=== PATIENT | female | born 1970 | race Caucasian/White ===

== ENCOUNTER 2016-12-24 19:34 | Emergency (ER) | payer OTHER ==
[2016-12-24 19:44] VITALS: BP 149/66; PULSE 85; RESP 16; TEMP 97.8
[2016-12-24] MEDS ORDERED: methylPREDNISolone SOD SUCCI 125 MG/2 ML VIAL IM ONE (19:47)
[2016-12-24] MEDS ORDERED: HYDROmorphone 1 MG/ML 1 ML SYRINGE IM STA (19:47)
[2016-12-24] MEDS ORDERED: ORPHENADRINE 30 MG/ML 2 ML VIAL IM STA (19:47)
--- NOTE | 2016-12-24 19:58 | ED ---
Back Pain HPI - General Chief Complaint: Back Pain/Injury Stated Complaint: back pain Time Seen by Provider: 12/24/16 19:42 Source: patient, RN notes reviewed Limitations: no limitations - History of Present Illness Initial Comments: 46-year-old female presents to emergency room chief complaint back pain. Patient states this time she is at work she felt a pop in her back when she was stretching. Patient states that she's had this numbness and tingling radiating down her left leg. Patient does admit to some saddle anesthesia as well as one episode of loss of bladder function since his episode. Patient states there hasn't been any fever chills. Patient does admit to a history of herniated disc in the past. Patient states that she was concerned due to her continued pain and the fact he was not getting any better so she thought that she should be evaluated. Patient denies any recent fever, chills, shortness of breath, chest pain, abdominal pain, nausea vomiting, numbness or tingling, dysuria or hematuria, constipation or diarrhea, headaches or visual changes, or any other current symptoms. - Related Data Home Medications Medication Instructions Recorded Confirmed Furosemide [Lasix] 20 mg PO DAILY 12/24/16 12/24/16 Ibuprofen [Motrin] 800 mg PO Q6HR PRN 12/24/16 12/24/16 Previous Rx's Medication Instructions Recorded Hydrocodone/Acetaminophen [[place] 1 each PO Q6HR PRN #20 tab 12/24/16 5-325] Orphenadrine [Norflex] 100 mg PO Q12H #10 tablet.er 12/24/16 predniSONE 50 mg PO DAILY #5 tab 12/24/16 Allergies Allergy/AdvReac Type Severity Reaction Status Date / Time No Known Allergies Allergy Verified 12/24/16 20:37 Review of Systems ROS Statement: Those systems with pertinent positive or pertinent negative responses have been documented in the HPI. ROS Other: All systems not noted in ROS Statement are negative. Past Medical History Past Medical History: No Reported History History of Any Multi-Drug Resistant Organisms: None Reported Past Surgical History: No Surgical Hx Reported Past Psychological History: No Psychological Hx Reported Smoking Status: Never smoker Past Alcohol Use History: None Reported Past Drug Use History: None Reported General Exam Limitations: no limitations General appearance: alert, in distress Head exam: Present: atraumatic Neck exam: Present: normal inspection. Absent: tenderness, meningismus, lymphadenopathy Respiratory exam: Present: normal lung sounds bilaterally. Absent: respiratory distress, wheezes, rales, rhonchi, stridor Cardiovascular Exam: Present: regular rate, normal rhythm, normal heart sounds. Absent: systolic murmur, diastolic murmur, rubs, gallop, clicks Back exam: Present: normal inspection, tenderness (Lower lumbar area), other ( Positive straight leg raise on the left). Absent: full ROM (Due to pain) Expanded Back exam: Present: normal rectal tone. Absent: saddle anesthesia Back exam: Sciatic Notch Tenderness: Left, Positive Straight Leg Raise: Left, Negative Straight Leg Raising: Right Neurological exam: Present: alert, oriented X3, CN II-XII intact, motor sensory deficit (Patient has mild sensory deficit to the left lateral aspect of the leg she is able to feel touch but states it is less prominent when compared to the opposite leg) Expanded DTR: Patellar (R): 2+, Patellar (L): 2+, Achilles Tendon (R): 2+, Achilles Tendon (L): 2+ Psychiatric exam: Present: normal affect, normal mood Skin exam: Present: warm, dry, intact, normal color. Absent: rash Course Vital Signs 12/24/16 19:40 Temperature 97.8 F Pulse Rate 85 Respiratory 16 Rate Blood Pressure 149/66 O2 Sat by Pulse 100 Oximetry Medical Decision Making - Medical Decision Making 46-year-old female presents emergency department chief complaint of low back pain. This time patient's CT does show a L4-L5 disc herniation. At this time and neurological exam wasn't performed that does show a mild sensation decreased the left lateral aspect of the lower calf with no other neurological deficits. At this time patient was offered admission to the hospital but she does feel comfortable going home she states she is feeling better. This time patient has no saddle anesthesia patient has normal rectal tone. At this time we discussed follow-up with Dr. Pike whose information she has received. We did give her pain medication muscle relaxers and steroids for home. We discussed return parameters and follow-up. Patient stated that she understood all questions have been answered. She will be discharged home. - Radiology Data Radiology results: report reviewed, image reviewed Disposition Clinical Impression: Lumbosacral disc herniation Disposition: HOME SELF-CARE Condition: Stable Instructions: Lumbar Disc Herniation (ED) Additional Instructions: Please use medication as discussed. Please follow up with family doctor if symptoms have not improved over the next two days. Please return to the emergency room if your symptoms increase or worsen or for any other concerns. Prescriptions: Hydrocodone/Acetaminophen [[place] 5-325] 1 each PO Q6HR PRN #20 tab PRN Reason: Pain Orphenadrine [Norflex] 100 mg PO Q12H #10 tablet.er predniSONE 50 mg PO DAILY #5 tab Referrals: Abdiel Irvin DO [Primary Care Provider] - 1-2 days Reshma Pena DO [Doctor of Osteopathic Medicine] - 1-2 days Time of Disposition: 20:52
--- NOTE | 2016-12-24 20:22 | CT ---
EXAMINATION TYPE: CT lumbar spine wo con DATE OF EXAM: 12/24/2016 8:07 PM COMPARISON: NONE HISTORY: Low back pain after stretching yesterday. CT DLP: 479.90 mGycm Automated exposure control for dose reduction was used. Unenhanced CT of the lumbar spine was performed. Bone and soft tissue window settings are submitted as well as coronal and sagittal reconstructions. The lumbar vertebra have normal alignment. Disc spaces are normal. There is mild to moderate posterio r disc herniation in the midline at L4-5. There is mild posterior disc bulging at L3-4 and L5-S1. Fac et joints are intact. There is no evidence of a fracture. Sacroiliac joints appear normal. There is n o paraspinal mass. IMPRESSION: Mild to moderate posterior L4-5 disc herniation. this is probably increased significantly compared t o the old MR scan of 03/12/2013. No fracture seen.
== END 2016-12-24 21:11 | disposition home or self-care (01) ==
LOC: EC 19:34
DX: M51.26 Other intervertebral disc displacement, lumbar region (principal); Z79.899 Other long term (current) drug therapy
CPT/HCPCS: 99283; 96372; 72131; J2360; J2930; J1170

== ENCOUNTER → 2017-01-21 | Outpatient (CLI) | payer OTHER ==
--- NOTE | 2017-01-21 07:39 | MR ---
EXAMINATION TYPE: MR lumbar spine wo con DATE OF EXAM: 01/21/2017 7:18 AM COMPARISON: NONE HISTORY: Low back pain TECHNIQUE: Multiplanar, multisequence images of the lumbar spine were acquired. L1-L2: Normal disc appearance without desiccation. No herniation, protrusion or disc bulging. No ca nal stenosis is present. Foramina are patent bilaterally. L2-L3: Normal disc appearance without desiccation. No herniation, protrusion or disc bulging. No ca nal stenosis is present. Foramina are patent bilaterally. L3-L4: Normal disc appearance without desiccation. No herniation, protrusion or disc bulging. No ca nal stenosis is present. Foramina are patent bilaterally. L4-L5: There is mild disc desiccation identified. Mild posterior central disc herniation subligamento us in location. Mild effacement ventral thecal sac. No evidence for central stenosis. Mild left later al recess stenosis noted. No evidence for foraminal encroachment. L5-S1: Mild disc desiccation noted. Mild posterior disc bulge with small annular tear. No jose herni ation. No evidence for central stenosis or lateral recess stenosis. Foramina are patent bilaterally. Lumbar segments are intact. No paraspinal masses are identified. Conus medullaris has a normal appe arance. IMPRESSION: 1. Degenerative disc disease as discussed. 2. Mild subligamentous disc herniation at L4-5 with mild left lateral recess stenosis. 3. Posterior central disc bulge at L5-S1 with small annular tear.
== END | disposition home or self-care (01) ==
LOC: RADMRIMAIN 06:42
PROVIDERS: ATTEND Neurological Surgery
DX: M48.06 Spinal stenosis, lumbar region (principal); M51.26 Other intervertebral disc displacement, lumbar region; M51.27 Other intervertebral disc displacement, lumbosacral region; M51.36 Other intervertebral disc degeneration, lumbar region
CPT/HCPCS: 72148

== ENCOUNTER 2017-10-16 23:45 | Emergency (ER) | payer OTHER ==
[2017-10-16] MEDS ORDERED: LORazepam 2 MG/ML INJ IV STA (23:52)
[2017-10-16] MEDS ORDERED: KETOROLAC 30 MG/ML 1 ML VIAL IVP STA (23:52)
--- NOTE | 2017-10-16 23:55 | ED ---
Abdominal Pain HPI - General Stated Complaint: Constipation Time Seen by Provider: 10/16/17 23:45 Source: patient, EMS, RN notes reviewed Mode of arrival: EMS - History of Present Illness Initial Comments: 39-year-old female who has a history of chronic back pain does get injections for the same and was also on narcotic pain medication for pain who presents with complaints of inability to have a bowel movement with her about the last 4- 5 days. She normally is not regular anyway she's not had anything other than a small a lot of stool 4 days ago. She complains of severe pressure to her lower abdomen. She did try to take citrate of magnesium without any results less far she also tried to digitally disimpact herself initially she may have scratched her rectum. She has no nausea no vomiting. No prior history of abdominal surgeries. No dysuria hematuria MD Complaint: abdominal pain, other - Related Data Home Medications Medication Instructions Recorded Confirmed Furosemide [Lasix] 20 mg PO DAILY 12/24/16 12/24/16 Ibuprofen [Motrin] 800 mg PO Q6HR PRN 12/24/16 12/24/16 Previous Rx's Medication Instructions Recorded Hydrocodone/Acetaminophen [[place] 1 each PO Q6HR PRN #20 tab 12/24/16 5-325] Orphenadrine [Norflex] 100 mg PO Q12H #10 tablet.er 12/24/16 predniSONE 50 mg PO DAILY #5 tab 12/24/16 Allergies Allergy/AdvReac Type Severity Reaction Status Date / Time No Known Allergies Allergy Verified 10/17/17 00:08 Review of Systems ROS Statement: Those systems with pertinent positive or pertinent negative responses have been documented in the HPI. ROS Other: All systems not noted in ROS Statement are negative. Past Medical History Past Medical History: No Reported History History of Any Multi-Drug Resistant Organisms: None Reported Past Surgical History: No Surgical Hx Reported Past Psychological History: No Psychological Hx Reported Smoking Status: Never smoker Past Alcohol Use History: None Reported Past Drug Use History: None Reported General Exam - General Exam Comments Initial Comments: This is a well-developed well-nourished awake alert oriented 3 female General appearance: alert, anxious, in distress Head exam: Present: atraumatic, normocephalic, normal inspection Eye exam: Present: normal appearance, PERRL, EOMI. Absent: scleral icterus, conjunctival injection, periorbital swelling ENT exam: Present: normal exam, mucous membranes moist Neck exam: Present: normal inspection. Absent: tenderness, meningismus, lymphadenopathy Respiratory exam: Present: normal lung sounds bilaterally. Absent: respiratory distress, wheezes, rales, rhonchi, stridor Cardiovascular Exam: Present: regular rate, normal rhythm, normal heart sounds. Absent: systolic murmur, diastolic murmur, rubs, gallop, clicks GI/Abdominal exam: Present: soft, normal bowel sounds, other (Some increased tympany to percussion). Absent: distended, tenderness, guarding, rebound, rigid , bruit, pulsatile mass, hernia Rectal exam: Present: normal inspection, other (I did perform rectal exam with a female nurse present, Cinthya. Her stool is noted in the rectal vault somewhat tentative palpation and manipulation. No bleeding noted.) Extremities exam: Present: normal inspection, full ROM, normal capillary refill. Absent: tenderness, pedal edema, joint swelling, calf tenderness Back exam: Present: normal inspection Neurological exam: Present: alert, oriented X3, CN II-XII intact Psychiatric exam: Present: normal affect, normal mood Skin exam: Present: warm, dry, intact, normal color. Absent: rash Course Vital Signs 10/16/17 23:50 Temperature 98.3 F Pulse Rate 86 Respiratory 20 Rate Blood Pressure 134/80 O2 Sat by Pulse 99 Oximetry - Reevaluation(s) Reevaluation #1: 10/17/17 00:30 Patient does demonstrate evidence of a fecal impaction she will get a milk and molasses enema. Medical Decision Making - Medical Decision Making Patient did get some results from the enemas. She would like to go home she is feeling somewhat better she'll be discharged we did a long discussion regarding management of the current situation. She may take one more bottle of citrate of magnesium she will be going home with a Therevac enema. She is return if any problems and follow-up with her doctor otherwise. - Radiology Data Radiology results: report reviewed (I did review the imaging no acute findings patient does have evidence of constipation.), image reviewed Disposition Clinical Impression: Constipation, Abdominal pain Disposition: HOME SELF-CARE Condition: Good Instructions: Abdominal Pain (ED), Constipation (ED), Fleet Enema (ED), Obstipation (ED), High Fiber Diet (ED) Referrals: Abdiel Irvin DO [Primary Care Provider] - 1-2 days
[2017-10-17 00:13] VITALS: TEMP 98.3
--- NOTE | 2017-10-17 00:53 | XR ---
EXAMINATION TYPE: XR abdomen 1V DATE OF EXAM: 10/17/2017 COMPARISON: NONE HISTORY: Constipation. Pain. TECHNIQUE: Supine and upright views FINDINGS: There is no sign of intestinal obstruction or pneumoperitoneum. Fecal pattern is normal. Th ere are no pathologic calcifications over the kidneys. IMPRESSION: Nonacute abdomen.
[2017-10-17] MEDS ORDERED: KETOROLAC 30 MG/ML 1 ML VIAL IVP STA (01:34)
[2017-10-17] MEDS ORDERED: DOCUSATE 283 MG/5 ML ENEMA RECTAL STA (02:50)
[2017-10-17 02:57] VITALS: BP 117/56; PULSE 80; RESP 16
== END 2017-10-17 03:02 | disposition home or self-care (01) ==
LOC: EC 23:45
DX: K59.00 Constipation, unspecified (principal); R10.9 Unspecified abdominal pain; Z79.899 Other long term (current) drug therapy
CPT/HCPCS: 74018; 99284; 96374; 96375; 96376; J2060; J1885

== ENCOUNTER → 2017-12-02 | Outpatient (CLI) | payer OTHER ==
--- NOTE | 2017-12-03 13:34 | MM ---
Reason for exam: screening (asymptomatic). Last mammogram was performed 1 year and 2 months ago. History: Patient is postmenopausal. Family history of breast cancer in aunt at age 50. Physical Findings: A clinical breast exam by your physician is recommended on an annual basis and results should be correlated with mammographic findings. MG 3D Screening Mammo W/Cad Bilateral CC and MLO view(s) were taken. Prior study comparison: October 04, 2016, bilateral MG 3d screening mammo w/cad. June 15, 2010, bilateral digital screening mammogram. The breast tissue is heterogeneously dense. This may lower the sensitivity of mammography. No suspicious abnormality. No significant changes when compared with prior studies. ASSESSMENT: Negative, BI-RAD 1 RECOMMENDATION: Routine screening mammogram of both breasts in 1 year.
== END | disposition home or self-care (01) ==
LOC: RADMAMWWP 11-05 13:27
PROVIDERS: ATTEND Family Medicine
DX: Z12.31 Encounter for screening mammogram for malignant neoplasm of breast (principal)
CPT/HCPCS: 77063; 77067

== ENCOUNTER 2018-09-07 21:15 | Emergency (ER) | payer OTHER ==
[2018-09-07] MEDS ORDERED: ORPHENADRINE 30 MG/ML 2 ML VIAL IM STA (21:47)
[2018-09-07] MEDS ORDERED: KETOROLAC 60 MG/2 ML VIAL IM STA (21:47)
[2018-09-07 22:00] VITALS: RESP 18
--- NOTE | 2018-09-07 23:08 | XR ---
EXAM: XR Lumbar Spine, 2 or 3 Views CLINICAL HISTORY: ITS.REASON XR Reason: Pain TECHNIQUE: Frontal and lateral views of the lumbar spine. COMPARISON: No relevant prior studies available. FINDINGS: Vertebrae: Unremarkable. No acute fracture. Normal alignment. Disc spaces: No acute findings. No significant narrowing. Soft tissues: Unremarkable. IMPRESSION: Normal lumbar spine x-rays.
--- NOTE | 2018-09-07 23:18 | ED ---
Back Pain HPI - General Chief Complaint: Back Pain/Injury Stated Complaint: Back pain Time Seen by Provider: 09/07/18 21:26 Source: patient, RN notes reviewed, old records reviewed Limitations: physical limitation - History of Present Illness Initial Comments: PAtient is a 48 year old female with CC of back pain radiating down the R leg. 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 She has had this happen before. She denies saddle anesthesia. She tried to stertch the area with minimal relief. Pain is better if standing zoe over. She reports pian with sitting nad llaying flat. - Related Data Home Medications Medication Instructions Recorded Confirmed Furosemide [Lasix] 20 mg PO DAILY 12/24/16 12/24/16 Ibuprofen [Motrin] 800 mg PO Q6HR PRN 12/24/16 12/24/16 Previous Rx's Medication Instructions Recorded Hydrocodone/Acetaminophen [[place] 1 each PO Q6HR PRN #20 tab 12/24/16 5-325] Orphenadrine [Norflex] 100 mg PO Q12H #10 tablet.er 12/24/16 predniSONE 50 mg PO DAILY #5 tab 12/24/16 Dexamethasone 0.75 mg PO DAILY #12 tab 09/07/18 HYDROcodone/APAP 5-325MG [[place] 1 tab PO Q6HR PRN #10 tab 09/07/18 5-325] Ibuprofen [Motrin] 600 mg PO Q8HR PRN #30 tab 09/07/18 Orphenadrine [Norflex] 100 mg PO BID #10 tablet.er 09/07/18 Allergies Allergy/AdvReac Type Severity Reaction Status Date / Time No Known Allergies Allergy Verified 09/07/18 22:00 Review of Systems ROS Statement: Those systems with pertinent positive or pertinent negative responses have been documented in the HPI. ROS Other: All systems not noted in ROS Statement are negative. Past Medical History Past Medical History: No Reported History Additional Past Medical History / Comment(s): back pain History of Any Multi-Drug Resistant Organisms: None Reported Past Surgical History: No Surgical Hx Reported, Hysterectomy Past Psychological History: No Psychological Hx Reported Smoking Status: Never smoker Past Alcohol Use History: None Reported Past Drug Use History: None Reported General Exam - General Exam Comments Initial Comments: 48 year old female, standing in exam room. Patient is bent over table. Appears in moderate discomfort with movement. Limitations: physical limitation General appearance: alert Head exam: Present: atraumatic, normocephalic, normal inspection Eye exam: Present: normal appearance, PERRL, EOMI. Absent: scleral icterus, conjunctival injection, periorbital swelling ENT exam: Present: normal exam, mucous membranes moist Neck exam: Present: normal inspection. Absent: tenderness, meningismus, lymphadenopathy Respiratory exam: Present: normal lung sounds bilaterally. Absent: respiratory distress, wheezes, rales, rhonchi, stridor Cardiovascular Exam: Present: regular rate, normal rhythm, normal heart sounds. Absent: systolic murmur, diastolic murmur, rubs, gallop, clicks GI/Abdominal exam: Present: soft, normal bowel sounds. Absent: distended, tenderness, guarding, rebound, rigid Back exam: Present: normal inspection, tenderness (lumba and sciatic notch tenderness over right side. Jude is worse with stanidng upright for patient. Normal sensation ra both legs. 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 She has pain worse with movement. Xrays of back were completed. Patient was given IM toradol norflex and short course of pain medication. She had been advised to stretch, apply warm complress over back and follow up with PCP. Return parameters discussed. - Radiology Data Radiology results: report reviewed (No) Normal lumbar spine xray. Disposition Clinical Impression: Sciatica, right side Disposition: HOME SELF-CARE Condition: Good Instructions: Acute Low Back Pain (ED) Additional Instructions: Patient advised to follow-up with primary care physician. Take the medications as prescribed. Return to emergency department if any alarming signs or symptoms occur. Prescriptions: Dexamethasone 0.75 mg PO DAILY #12 tab HYDROcodone/APAP 5-325MG [[place] 5-325] 1 tab PO Q6HR PRN #10 tab PRN Reason: Pain Ibuprofen [Motrin] 600 mg PO Q8HR PRN #30 tab PRN Reason: Pain Orphenadrine [Norflex] 100 mg PO BID #10 tablet.er Is patient prescribed a controlled substance at d/c from ED?: Yes When asked, does pt state using other controlled substances?: Yes If prescribed controlled substance>3 days was MAPS reviewed?: Prescribed <3 Days If opioid is for acute pain is fill amount 7 days or less?: Yes If Rx opioid, was Start Talking consent form obtained?: Yes Referrals: Abdiel Irvin DO [Primary Care Provider] - 1-2 days Time of Disposition: 23:16
[2018-09-07] MEDS ORDERED: CYCLOBENZAPRINE 10MG STARTER 3 TAB BTL PO STA (23:32)
[2018-09-07] MEDS ORDERED: ACET/COD 300 MG/30 MG STARTER PACK 6 TAB BTL PO STA (23:32)
[2018-09-07 23:33] VITALS: BP 138/75; PULSE 64; TEMP 97.7
== END 2018-09-07 23:29 | disposition home or self-care (01) ==
LOC: EC 21:15
DX: M54.41 Lumbago with sciatica, right side (principal); Z79.899 Other long term (current) drug therapy
CPT/HCPCS: 72100; 99284; 96372 ×2; J2360; J1885

== ENCOUNTER → 2018-12-23 | Outpatient (CLI) | payer OTHER ==
[2018-12-23 13:36] VITALS: BP 127/84; PULSE 69; RESP 16
--- NOTE | 2018-12-23 13:58 | P.CONS ---
History of Present Illness - Reason for Consult Consult date: 12/23/18 - Chief Complaint Lower back and right leg pain - History of Present Illness This is a 48-year-old lady with chronic history of lower back pain with radiation to the right lower extremity down to the knee level. She denies any paresthesia in the lower extremity however she does feel some weakness in the right leg. She denies any bowel or bladder dysfunction. She used to go to the clinic clinic in [place] and she had few procedures including RFA on the lumbar medial branches which helped her significantly with her lower back pain. She has just had lumbar MRI which showed moderate to severe bilateral foraminal stenosis at the L4 5 level and also at L3 4 level. It also showed mild facet arthropathy and DDD. The patient has not tried physical therapy yet. 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 Review of Systems Eyes: denies blurred vision, denies pain Respiratory: Denies cough Musculoskeletal: Reports as per HPI Neurological: Reports as per HPI Past Medical History Past Medical History: No Reported History Additional Past Medical History / Comment(s): back pain History of Any Multi-Drug Resistant Organisms: None Reported Past Surgical History: No Surgical Hx Reported, Hysterectomy Past Psychological History: No Psychological Hx Reported Smoking Status: Never smoker Past Alcohol Use History: None Reported Past Drug Use History: None Reported Medications and Allergies Home Medications Medication Instructions Recorded Confirmed Type Furosemide [Lasix] 20 mg PO DAILY 12/24/16 12/23/18 History HYDROcodone/APAP 5-325MG [[place] 1 tab PO Q6HR PRN #10 tab 09/07/18 12/23/18 Rx 5-325] Hydrocodone/Acetaminophen [[place] 1 each PO BID 12/23/18 History 5-325] Allergies Allergy/AdvReac Type Severity Reaction Status Date / Time No Known Allergies Allergy Verified 12/23/18 13:23 Physical Exam Vitals: Vital Signs Pulse Resp BP Pulse Ox 12/23/18 13:26 69 16 127/84 100 Intake and Output 12/22/18 12/23/18 12/23/18 22:59 06:59 14:59 Other: Weight 72.575 kg - Constitutional General appearance: thin - EENT Eyes: PERRLA - Respiratory Respiratory: bilateral: CTA - Cardiovascular Rhythm: regular - Neurologic Neuro exam of the lower extremities showed normal and symmetrical knee reflexes and absent ankle reflexes bilaterally. She has normal and symmetrical muscle strength bilaterally. Straight leg raising test negative bilaterally. Positive tenderness in the right lumbar paravertebral musculature No sacroiliac joint tenderness on the right side Facet loading test is negative Neurologic: CNII-XII intact - Psychiatric Psychiatric: A&O x's 3, appropriate affect, intact judgment & insight Assessment and Plan Plan: This is a 48-year-old lady with neural foraminal stenosis with lower back and right leg pain. She also has DDD and facet arthropathy without myelopathy. The patient may benefit from getting transforaminal epidural steroid injection at the L3 4 and L4 5 on the right side under fluoroscopic guidance. The patient also may benefit from getting physical therapy in the near future. If her lower back pain continues to be an issue after the transforaminal epidura l steroid injection then she might benefit from getting a diagnostic lumbar medial branch block and may be RFA in the future. She did mention that she had RFA done previously in [place] which helped her lower back pain considerably.
== END ==
LOC: PNWHC3 13:19
PROVIDERS: ATTEND Anesthesiology
DX: M48.061 Spinal stenosis, lumbar region without neurogenic claudication (principal); M51.36 Other intervertebral disc degeneration, lumbar region; M46.96 Unspecified inflammatory spondylopathy, lumbar region; M79.604 Pain in right leg; Z79.891 Long term (current) use of opiate analgesic; Z79.899 Other long term (current) drug therapy
CPT/HCPCS: 99211

== ENCOUNTER 2019-01-07 07:21 | Day surgery (SDC) | payer OTHER ==
[2019-01-05 14:50] VITALS: BMI 24.6
[2019-01-07 07:41] VITALS: TEMP 99.2
[2019-01-07] MEDS ORDERED: LACTATED RINGERS 1,000 ML IV ONE (07:52)
[2019-01-07] MEDS ORDERED: LIDOCAINE 1% 20 ML VIAL (10MG/ML) FOR IV START INTRADERMA ONE (07:52)
--- NOTE | 2019-01-07 08:10 | P.PCN ---
Date of Procedure: 01/07/19 Description of Procedure: DESCRIPTION OF PROCEDURE(S): PREOPERATIVE DIAGNOSIS: Lumbar radiculopathy POSTOPERATIVE DIAGNOSIS: Lumbar radiculopathy PROCEDURE 1. Transforaminal epidural steroid injection under fluoroscopic guidance Right L3/4 &L 4/5 2. Lumbar epidurogram ANESTHESIA: Local with 1% lidocaine 5 ml ; 2mg versed and 100mcg of fentanyl PROCEDURE INDICATION: The patient with low back pain and radiculopathy symptoms unresponsive to conservative treatment. PROCEDURE DESCRIPTION / TECHNIQUE: The patient was seen and identified in the preoperative area. Risks, benefits, complications, and alternatives were discussed with the patient. The patient agreed to proceed with the procedure and signed the consent. IV was started, and vital signs were stable. Patient was taken to the OR and time out was completed. The patient was placed in the prone position on procedure table and a pillow was placed under the abdomen to reduce lumbar lordosis. The lumbosacral area was prepped and draped in the usual sterile fashion. Vital signs were closely monitored during the procedure. Conscious sedation was used. Using oblique fluoroscopy, the chin of the ``Shadi dog at the pedicle and the skin and deeper tissues just below was localized with 1% lidocaine. Subsequently, a 22-gauge 3.5-inch spinal needle was advanced under a tunneled view fluoroscopic guidance just underneath the chin of the ``Shadi dog. Under lateral fluoroscopy, the needle was then advanced to the posterior border interforaminal space. After negative aspiration of CSF and blood and with no paresthesias, 1 mL of Omnipaque-240 contrast dye was injected excellent epidurogram. Subsequently, solution consisting of 10mg/ml dexamethasone with 1 ml PF normal saline, and 1 ml 0.25% ropivacaine 2 ml was injected at each level (total of 10mg of dexamethasone. Needle was removed. COMPLICATIONS: None COMMENTS: DISPOSITION / PLANS: The patient was placed in a supine position and transferred to the recovery area in a stable condition for observation. There was no evidence of lower extremity motor or sensory deficit after the procedure. Patient was discharged from the recovery room after meeting discharge criteria. Home discharge instructions were given to the patient by the staff. The patient was reexamined prior to discharge. f/u in 4 weeks in clinic to evaluate left side.
[2019-01-07] MEDS ORDERED: IV FLUID CONTINUATION 1,000 ML IV ONE (08:27)
[2019-01-07 08:32] VITALS: BP 114/56; PULSE 74; RESP 16
--- NOTE | 2019-01-07 08:38 | FL ---
Fluoroscopy HISTORY: Pain 10 seconds fluoroscopy time supplied to the referring clinician. 2 intraoperative C-arm images docum ent the procedure. See dictated report from anesthesia.
== END 2019-01-07 08:57 | disposition home or self-care (01) ==
LOC: ORPAIN 07:21
PROVIDERS: ATTEND Hospitalist
DX: G89.29 Other chronic pain (principal); M51.16 Intervertebral disc disorders with radiculopathy, lumbar region; M48.061 Spinal stenosis, lumbar region without neurogenic claudication; M46.96 Unspecified inflammatory spondylopathy, lumbar region; Z79.891 Long term (current) use of opiate analgesic; Z79.899 Other long term (current) drug therapy; Z90.710 Acquired absence of both cervix and uterus
CPT/HCPCS: 64483; 64484; J2250; J1100; J3010; Q9966; 99152

== ENCOUNTER 2019-01-27 08:48 | Day surgery (SDC) | payer OTHER ==
[~2019-01-27 08:48] MED LIST: LACTATED RINGERS 1,000 ML IV SCH
[2019-01-27 09:11] VITALS: RESP 16; TEMP 99.2
[2019-01-27] MEDS ORDERED: LIDOCAINE 1% 20 ML VIAL (10MG/ML) FOR IV START INTRADERMA ONE (09:16)
[2019-01-27] MEDS ORDERED: IV FLUID CONTINUATION 1,000 ML IV ONE (09:54)
--- NOTE | 2019-01-27 10:05 | FL ---
Fluoroscopy INDICATION: Pain FINDINGS: Fluoroscopy time: 4 seconds. Images obtained: 2. IMPRESSIONS: 1. Documentation of fluoroscopy.
--- NOTE | 2019-01-27 10:08 | P.OP ---
Date of Procedure: 01/27/19 Surgeon: Hector Ji Description of Procedure: DESCRIPTION OF PROCEDURE(S): PREOPERATIVE DIAGNOSIS: Lumbar radiculopathy POSTOPERATIVE DIAGNOSIS: Lumbar radiculopathy PROCEDURE 1. Transforaminal epidural steroid injection under fluoroscopic guidance right L3, right L4 2. Lumbar epidurogram ANESTHESIA: Local with 1% lidocaine 3 ml ; IV sedation with Versed 2 mg and fentanyl 100 micrograms. PROCEDURE INDICATION: The patient with low back pain and radiculopathy symptoms unresponsive to conservative treatment. PROCEDURE DESCRIPTION / TECHNIQUE: The patient was seen and identified in the preoperative area. Risks, benefits, complications, and alternatives were discussed with the patient. The patient agreed to proceed with the procedure and signed the consent. IV was started, and vital signs were stable. Patient was taken to the OR and time out was completed. The patient was placed in the prone position on procedure table and a pillow was placed under the abdomen to reduce lumbar lordosis. The lumbosacral area was prepped and draped in the usual sterile fashion. Vital signs were closely monitored during the procedure. Conscious sedation was used. Using oblique fluoroscopy, the chin of the ``Shadi dog and the skin and deeper tissues just below was localized with 1% lidocaine. Subsequently, a 22- gauge 3.5-inch spinal needle was advanced under a tunneled view fluoroscopic guidance just underneath the chin of the ``Shadi dog . Under lateral fluoroscopy, the needle was then advanced to the posterior border of the foramen. After negative aspiration a solution containing 10 mg of Decadron and 1/2 mL of 0.5% bupivacaine was injected at each level. The needle was withdrawn intact. At the end of the procedure, skin was cleansed, and bandages were applied. COMPLICATIONS: None COMMENTS: DISPOSITION / PLANS: The patient was placed in a supine position and transferred to the recovery area in a stable condition for observation. There was no evidence of lower extremity motor or sensory deficit after the procedure. Patient was discharged from the recovery room after meeting discharge criteria. Home discharge instructions were given to the patient by the staff. The patient was reexamined prior to discharge. She will follow-up for translaminar lumbar epidural steroid injection at L4 5 as her MRI reveals moderate central canal stenosis at this level and she does have bilateral symptoms.
[2019-01-27 10:11] VITALS: BP 93/65; PULSE 68
== END 2019-01-27 10:34 | disposition home or self-care (01) ==
LOC: ORPAIN 08:48
PROVIDERS: ATTEND Pain Medicine Pain Medicine
DX: M54.16 Radiculopathy, lumbar region (principal); Z90.711 Acquired absence of uterus with remaining cervical stump
CPT/HCPCS: 64483; 64484; J2250; J1100; J3010

== ENCOUNTER 2019-02-16 05:53 | Day surgery (SDC) | payer OTHER ==
[2019-02-16 06:19] VITALS: TEMP 97.9
[2019-02-16] MEDS ORDERED: LACTATED RINGERS 1,000 ML IV SCH (06:25)
--- NOTE | 2019-02-16 07:15 | P.PCN ---
Date of Procedure: 02/16/19 Procedure(s) Performed: PREOPERATIVE DIAGNOSIS: 1- Lumbar herniated Disc Diseases 2-Lumbar Radiculopathy POSTOPERATIVE DIAGNOSIS: Same as preoperative diagnosis PROCEDURE 1. Lumbar epidural steroid injection under fluoroscopic guidance at the L4-5 level. 2. Lumbar epidurogram. ANESTHESIA: Local with 1% lidocaine 3 ml only . EBL: Minimal PROCEDURE INDICATION: The patient with low back pain and radiculitis symptoms unresponsive to conservative treatment. Fluoroscopy was used to optimize visualization of the needle placement and to maximize safety. PROCEDURE DESCRIPTION / TECHNIQUE: The patient was seen and identified in the preoperative area. Risks, benefits, complications including but not limited to infections ,bleeding ,allergic reaction to the medications ,nerve damage and not complete pain releife , and alternatives were discussed with the patient. The patient agreed to proceed with the procedure and signed the consent, and vital signs were stable. Patient was taken to the OR and time out was completed. The patient was placed in the prone position on procedure table and a pillow was placed under the abdomen to reduce lumbar lordosis. The lumbosacral area was prepped and draped in the usual sterile fashion.ere closely monitored during the procedure. Vital signs was monitered during the entire procedure. Using anterior-posterior fluoroscopy, the L4-5 interlaminar space was identified and the skin over this site was marked and then infiltrated with 1% lidocaine subcutaneously. Subsequently, a 20-gauge Tuohy epidural needle was inserted and advanced toward the epidural space using the ``Loss of resistance technique and guided by AP and lateral fluoroscopy. The correct needle position in the epidural space was verified with the injection of 2 mL of the water soluble contrast dye Isovue 200 contrast and observing an excellent epidurogram with the epidural spread of the dye, after negative aspiration for blood and CSF and in the absence of paresthesias. Again after negative aspiration, a 6 ml mixture containing 80 mg of Depo-medrol , and 2 ml of preservative free Normal Saline, and 2 ml of preservative free lidocaine 1% solution was injected and a washout of epidurogram was seen. Needle was withdrawn intact, skin was cleansed, and bandages were applied. COMPLICATIONS: None DISPOSITION / PLANS: The patient was placed in a supine position and transferred to the recovery area in a stable condition for observation. There was no evidence of lower extremity motor or sensory deficit after the procedure. Patient was discharged from the recovery room after meeting discharge criteria. Home discharge instructions were given to the patient by the staff. The patient was reexamined prior to discharge. The patient will schedule a follow up in the clinic in 2-4 weeks.
[2019-02-16 07:22] VITALS: BP 118/73; PULSE 66; RESP 16
--- NOTE | 2019-02-16 07:23 | FL ---
EXAMINATION TYPE: FL guided pain mgmt statistic DATE OF EXAM: 02/16/2019 FLUOROSCOPY Fluoroscopy time of 1 seconds was used during lumbar epidural steroid injection. 1 image/s document/ s the procedure.
== END 2019-02-16 07:31 | disposition home or self-care (01) ==
LOC: ORPAIN 05:53
PROVIDERS: ATTEND Specialist
DX: M51.16 Intervertebral disc disorders with radiculopathy, lumbar region (principal); M47.26 Other spondylosis with radiculopathy, lumbar region; M48.061 Spinal stenosis, lumbar region without neurogenic claudication
CPT/HCPCS: 62323; J1030; Q9966

== ENCOUNTER 2019-02-24 06:59 | Day surgery (SDC) | payer OTHER ==
[2019-02-19 10:13] VITALS: BMI 24.3
[~2019-02-24 06:59] MED LIST changes: +DEXAMETHASONE SOD PHOSPHATE 10 MG/ML 1 ML VIAL IV ONE; +HEPARIN SODIUM,PORCINE 5,000 UNIT/ML 1 ML VIAL SQ ONE; +LIDOCAINE 1% 20 ML VIAL (10MG/ML) FOR IV START INTRADERMA PRN; +MIDAZOLAM 2 MG/2 ML VIAL IV PRN; +ceFAZolin IN SWFI 2 GM/20 ML SYRINGE IVP ONE
[2019-02-24 07:21] VITALS: RESP 16
--- NOTE | 2019-02-24 08:15 | P.GSHP ---
History of Present Illness H&P Date: 02/24/19 Chief Complaint: Right upper quadrant pain This is a 48-year-old female who presents today for laparoscopic cholestatic. Patient complains of pain. She is workup found have gallstones. Past Medical History Past Medical History: No Reported History Additional Past Medical History / Comment(s): BACK PAIN History of Any Multi-Drug Resistant Organisms: None Reported Past Surgical History: Hysterectomy Additional Past Surgical History / Comment(s): PARTIAL HYSTERECTOMY Past Anesthesia/Blood Transfusion Reactions: No Reported Reaction Smoking Status: Never smoker - Past Family History Mother Family Medical History: No Reported History Medications and Allergies Home Medications Medication Instructions Recorded Confirmed Type Furosemide [Lasix] 20 mg PO DIRECTED PRN 12/24/16 02/24/19 History Hydrocodone/Acetaminophen [[place] 1 each PO DIRECTED 12/23/18 02/24/19 History 5-325] Allergies Allergy/AdvReac Type Severity Reaction Status Date / Time No Known Allergies Allergy Verified 02/24/19 07:16 Surgical - Exam Vital Signs Temp Pulse Resp BP Pulse Ox 97.3 F L 82 16 137/80 98 02/24/19 07:19 02/24/19 07:19 02/24/19 07:19 02/24/19 07:19 02/24/19 07:19 - General well developed, well nourished, no distress - Eyes PERRL - ENT normal pinna - Neck no masses - Respiratory normal expansion - Cardiovascular Rhythm: regular - Abdomen Abdomen: soft, non tender Assessment and Plan Assessment: Right upper quadrant pain. We'll perform laparoscopic cholecystectomy.
[2019-02-24] MEDS ORDERED: GLYCOPYRROLATE 0.2 MG/ML 2 ML VIAL ONE (08:36)
[2019-02-24] MEDS ORDERED: ROCURONIUM BROMIDE 10 MG/ML 10 ML VIAL IV ONE (08:36)
[2019-02-24] MEDS ORDERED: fentaNYL (PF) 50 MCG/ML 2 ML AMP ONE (08:36)
[2019-02-24] MEDS ORDERED: NEOSTIGMINE 1 MG/ML 10 ML VIAL ONE (08:36)
[2019-02-24] MEDS ORDERED: SUCCINYLCHOLINE CHLORIDE 100 MG/5 ML SYR IV ONE (08:36)
[2019-02-24] MEDS ORDERED: PROPOFOL 10 MG/ML 20 ML VIAL IV ONE (08:36)
[2019-02-24] MEDS ORDERED: LIDOCAINE 1% INJ 10MG/ML (20 ML MDV) ONE (08:36)
[2019-02-24] MEDS ORDERED: KETOROLAC 30 MG/ML 1 ML VIAL ONE (08:36)
[2019-02-24] MEDS ORDERED: MIDAZOLAM 2 MG/2 ML VIAL ONE (08:36)
[2019-02-24] MEDS ORDERED: BUPIVACAIN-EPI 0.5%-1:200,000 30 ML VIAL SQ ONE (09:07)
--- NOTE | 2019-02-24 09:23 | P.OP ---
Date of Procedure: 02/24/19 Preoperative Diagnosis: Cholecystitis Cholelithiasis Postoperative Diagnosis: Cholecystitis Cholelithiasis Procedure(s) Performed: Laparoscopic cholecystectomy Anesthesia: LEANDRO Surgeon: Alan Woodard Estimated Blood Loss (ml): 5 Pathology: other (Gallbladder) Condition: stable Disposition: PACU Description of Procedure: The patient was placed on the operating table. The patient received a general endotracheal tube anesthesia. The patients abdomen was prepped and draped in the usual sterile fashion. Through an infraumbilical stab incision, the fascia of the anterior abdominal wall was grasped with a pair of Kochers and then the Veress needle was placed in the peritoneal cavity. Position of the Veress needle was confirmed with positive drop test. The abdomen was then insufflated. After adequate insufflation, the 10 mm trocar was placed in the peritoneal cavity. Following this the laparoscope was placed in the peritoneal cavity. The patient was placed in the head-up, right side up position and then a 5 mm trocar was placed in the right lateral and right subcostal position under direct visualization. A 8 mm trocar was placed in the epigastric position. The gallbladder was grasped in the fundus and infundibulum. Traction on the gallbladder was placed in the lateral and the cephalad positions. The triangle of Calot was visualized.. The cystic duct was bluntly dissected until the union of the cystic duct and common bile duct wa s seen. A critical view of safety was achieved. The cystic duct was then divided and sealed with the Harmonic scissors. A PDS Endoloop was then placed throughout the cystic duct stump. The cystic artery divided and sealed with the Harmonic scissors. The gallbladder was then removed from the liver bed using Harmonic scissors. The gallbladder was then extracted through the epigastric port site. Operative field was checked for any bleeding spots and Harmonic scissors was used to coagulate the liver bed. The abdomen was irrigated. The trocars were removed. The skin was closed using interrupted 3-0 Vicryl suture. Dermabond dressing were applied. The patient tolerated the procedure well.
[2019-02-24] MEDS ORDERED: LACTATED RINGERS 1,000 ML IV ONE (09:26)
[2019-02-24 09:35] VITALS: TEMP 96.9
[2019-02-24] MEDS: fentaNYL (PF) 50 MCG/ML 2 ML AMP IV PRN ×2 (09:36→09:40)
[2019-02-24] MEDS ORDERED: diphenhydrAMINE 50 MG/ML 1 ML VIAL IVP ONE (09:44)
[2019-02-24] MEDS: HYDROmorphone 1 MG/ML 1 ML SYRINGE IVP ONE ×2 (09:51→09:56)
[2019-02-24] MEDS ORDERED: ONDANSETRON 4 MG/2 ML VIAL IVP ONE (10:32)
[2019-02-24] MEDS ORDERED: HYDROcodone/APAP 7.5-325MG 1 EACH TAB PO ONE (10:45)
[2019-02-24 10:50] VITALS: PULSE 50
[2019-02-24 11:12] VITALS: BP 116/62
== END 2019-02-24 11:35 | disposition home or self-care (01) ==
LOC: OR 06:59
PROVIDERS: ATTEND Surgery
DX: K80.10 Calculus of gallbladder with chronic cholecystitis without obstruction (principal); Z90.710 Acquired absence of both cervix and uterus; M79.89 Other specified soft tissue disorders; Z79.891 Long term (current) use of opiate analgesic; Z79.899 Other long term (current) drug therapy
CPT/HCPCS: 88304; 47562; J2250; J1200; J1644; J1100; J2710; J2405; J2001; J3010; J1885; J1170; J0330; J2704; J0690

== ENCOUNTER → 2019-03-18 | Outpatient (CLI) | payer OTHER ==
[2019-03-18 13:07] VITALS: BP 106/68; PULSE 68; RESP 16; TEMP 98.1
--- NOTE | 2019-03-18 13:08 | P.PAINPG ---
Subjective Progress Note Date: 03/18/19 This is a follow-up visit for this 13 years old female with a chronic history of severe low back pain with radiation to the right lower extremity, patient diagnosed with lumbar radiculopathy, recently we have done a right-sided transforaminal epidural steroid injection at the L4 5, patient continued to have severe low back pain, with radiation to the right lower extremity patient denies any motor or sensory deficit, she denies any fever or night sweats she denies any change in the bowel movement or urination, intensity of the pain increases with any activity. Objective - Vital Signs Vital signs: Intake & Output 03/17/19 03/18/19 03/18/19 18:59 06:59 18:59 Weight 72.575 kg - Exam Physical Examinations : -Constitutiona : Cooperative , not in acute distress . -HEENT : nech ; supple , no Lymphadenopathy , normal thyroid size . eyes : no ptosis , no icterus, no photophobia . ENT : normal of hearing , normal oropharynx , no Thrush . - Respiratory : Chest clear to auscultations Bilaterally , no wheezing , no Rhonchi . - Cardiovascula : regular rate and rhythem , S1 , S2 , no S3 , no S4. - Gastrointestina : abdomen soft no tenderness , bowel sounds , no organomegally . - Genitourinary : Defferred . - neurologic : Cranial nerve II to XII intact , no focal neurological deffecit . -psychatric : alert , oriented X 3 , appropriate affect , intact judgment and insight . -Lymphatic : no Lymphadenopathy . - musculoskeltal : Cervical Spine motor stregnth in the deltoid and biceps, normal right side , normal Left side motor stregnth biceps and the wrist extensors normal right side ,normal left side . motor stregnth in the triceps muscle . normal Right side , normal Left side deep tendon reflexes normal at the biceps , normal at Brachioradialis , normal at triceps. positive cervical facet loading test . Spurling test positive bilaterally. Neck distraction test positive bilaterally. Manju sign positive bilaterally. Lumber spine moter stegnth lower extremities ,thigh and legs 5/5 Right side , 5/5 Left side deep tendon reflexes : normal Knee Jerk , normal ankle Jerk lumber facet Loading Test = positive bilaterally Range of motion of the lumbar spine Flexion 30 degrees, extension 10 degrees strait leg raising test , positive at 45 degree Fabere test positive RT and positive LT . tenderness over the Sacroiliac joint on the R and L sides Assessment and Plan Plan: Assessment and plan= 1-lumbar radiculopathy . 2-lumbar spondylosis with lumbar facet arthropathy without myelopathy. Patient continued to have severe low back pain after transforaminal epidural steroid injection. We will schedule patient to have diagnostic medial branch block lumbar area at L3 4/L4 5/L5-S1 Procedure risk and benefit of that to discuss with the patient she agreed with proceeding. Time with Patient: Less than 30 PQRS Measure Charge Sheet Measure #130: Documentation of Current Meds in Medical Chart: Patient's medications documented in chart Measure #226: Tobacco Use: Screen & Cessation Intervention: Pt not a tobacco user Measure #111: Pneumonia Vaccination: Pneumococcal vaccine NOT administered or previously given Measure #47: Advance Care Plan: Advance care planning discussed & documented, pt chose/unable to give Measure #412: Opioid Treatment Agreement: No documentation of signed opioid treatment agreement Measure #408: Opioid Therapy Follow-up Evaluation: Patient had NO f/u eval minimum every 3 months during opioid therapy Measure #317: Preventitive Care & Scrn High Bld Press & F/U: Normal blood pressure, f/u not required Measure #128: Body Mass Index (BMI) Screening & Follow-up: BMI documented within normal parameters Measure #131: Pain Assessment & Follow-up: Pain positive & plan documented, Follow-up scheduled Measure #431: Unhealthy Alcohol Use Preventative Care & Scrn: Patient not identified as an unhealthy alcohol user PQRS Narrative: Smoking Status Never smoker Hx Alcohol Use (MH) No Home Medications: Ambulatory Orders Furosemide [Lasix] 20 mg PO DIRECTED PRN 12/24/16 Hydrocodone/Acetaminophen [[place] 5-325] 1 each PO DIRECTED 12/23/18 Controlled Substance Measures - Controlled Substance Measures Is patient prescribed a controlled substance at discharge?: No
== END | disposition home or self-care (01) ==
LOC: PNWHC3 12:33
PROVIDERS: ATTEND Specialist
DX: G89.29 Other chronic pain (principal); M47.26 Other spondylosis with radiculopathy, lumbar region; M46.96 Unspecified inflammatory spondylopathy, lumbar region
CPT/HCPCS: 99211

== ENCOUNTER 2019-04-13 06:31 | Day surgery (SDC) | payer OTHER ==
[2019-04-06 16:22] VITALS: BMI 25.0
[~2019-04-13 06:31] MED LIST changes: -DEXAMETHASONE SOD PHOSPHATE 10 MG/ML 1 ML VIAL IV ONE; -HEPARIN SODIUM,PORCINE 5,000 UNIT/ML 1 ML VIAL SQ ONE; -LIDOCAINE 1% 20 ML VIAL (10MG/ML) FOR IV START INTRADERMA PRN; -MIDAZOLAM 2 MG/2 ML VIAL IV PRN; -ceFAZolin IN SWFI 2 GM/20 ML SYRINGE IVP ONE
[2019-04-13 06:46] VITALS: TEMP 97.2
[2019-04-13] MEDS ORDERED: LIDOCAINE 1% 20 ML VIAL (10MG/ML) FOR IV START INTRADERMA ONE (06:50)
--- NOTE | 2019-04-13 07:15 | P.PCN ---
Date of Procedure: 04/13/19 Procedure(s) Performed: PREOPERATIVE DIAGNOSIS : 1- Lumbar spondylosis with Facet Arthropathy without myelopathy . 2- Lumber radiculopathy POSTOPERATIVE DIAGNOSIS: 1- Lumbar spondylosis with Facet Arthropathy without myelopathy . 2- Lumber radiculopathy PROCEDURE: Diagnostic bilateral L3 -4 , L4 -5 , and L5-S1 medial branch block under fluoroscopy ( # 2 ) ANESTHESIA: moderate sedation with intravenous Versed 2 mg and Fentanyl 50 mcg. EBL: Minimal COMPLICATION: None. IV FLUIDS: 100 mL of normal saline. PROCEDURE INDICATION: Chronic low back pain secondary to Facet arthropathy unresponsive to conservative treatment. PROCEDURE DESCRIPTION: the patient was seen and identified in the preop holding area , risks and benefits and possible complications of the procedure and alternative were discussed with the patient, and the patient agreed to proceed with the procedure and signed the consent IV was started and vital signs monitored during the procedure and fluoroscopy was used to maximize the benefit and accuracy of the needle placement, and sedation was given to decrease patient anxiety, patient was taken to the procedure room and placed in prone position vital signs monitored in the back prepped with chlorhexidine X3 then under strict sterile technique using a right oblique fluoroscopy ,the junction of the transverse process and the superior articulating process of the right L3- 4 , L4- 5, and L5-S1 vertebra which corresponding to the fluoroscopy image of the eye of the Shadi dog on the block side for the medial branches and subsequently , after local infiltration of skin and subcu tissuies with Ropivacaine 0.5 % , one mL at each level ,then 22-gauge Quincke-type needles , 3 needle was used , each one of them placed at the junction of the base of the transverse process and the superior articular process at the appropriate level, and the needle was advanced until the periosteum contacted, needle placement confirmed with AP oblique and lateral view and after appropriate needle placement confirmed, and after negative aspiration for heme and CSF and there was no paresthesia 1-1/2 mL of Ropivacaine 0.5% mixed with 20 mg Depo-Medrol, then half mL injected at each level after negative aspiration the needle subsequently removed and the same procedure repeated for the left side at left side at L3-4, L4- 5 and L5- S1 levels. At the end of the procedure and the needles removed and a bandage applied after the skin was cleaned the cleaning solution patient taken to recovery room in stable condition and monitors in the recovery room for 20-30 minutes and discharged home in stable condition after discharge criteria met and patient will follow up with the pain clinic in 2-4 weeks
[2019-04-13] MEDS ORDERED: IV FLUID CONTINUATION 1,000 ML IV ONE (07:24)
[2019-04-13 07:28] VITALS: RESP 18
[2019-04-13 07:41] VITALS: BP 100/67; PULSE 68
--- NOTE | 2019-04-13 09:39 | FL ---
EXAMINATION TYPE: FL guided pain mgmt statistic DATE OF EXAM: 04/13/2019 FLUOROSCOPY Fluoroscopy time of 9 seconds was used during lumbar facet blocks. 4 image/s document/s the procedur e.
== END 2019-04-13 07:56 | disposition home or self-care (01) ==
LOC: ORPAIN 06:31
PROVIDERS: ATTEND Specialist
DX: G89.29 Other chronic pain (principal); M47.26 Other spondylosis with radiculopathy, lumbar region
CPT/HCPCS: 64493; 64494; 64495; J2250; J1030; J3010; 99152

== ENCOUNTER → 2019-05-05 | Outpatient (CLI) | payer OTHER ==
--- NOTE | 2019-05-05 15:41 | P.PAINPG ---
Subjective Progress Note Date: 05/05/19 This is a follow-up visit for this 48 year old female with a chronic history of severe low back pain with radiation to the right posterior thigh, she was diagnosed with lumbar spondylosis without myelopathy, she has recently undergone bilateral lumbar medial branch blocks and reports almost 100% pain relief from these procedures. She would like to proceed with radiofrequency ablation. Her pain is unchanged in nature, located in her lower back radiating to right posterior thigh not past the knee. She is currently taking [place] twice a day when necessary, prescribed by Dr. Pena, was inquiring if we would take over her medication prescriptions. I had a lengthy discussion with her regarding use of chronic opioids and ineffectiveness in treating chronic low back pain. I advised her to have Dr. Pena wean the medications. She is amenable to this. She does not report any side effects from the medications. Review of systems is negative for chest pain, shortness of breath, new onset weakness, numbness/tingling, abdominal pain, malaise, fever, night sweats, chills, homicidal or suicidal ideation, or bowel incontinence. She does report chronic bladder stress incontinence. She currently works as a massage therapist. Objective - Exam Physical exam: Vitals: Reviewed in EMR GENERAL: Well appearing, in no acute distress PSYCH: Mood and affect is appropriate. Awake, alert, and oriented SKIN: Skin color, texture, turgor normal, no rashes or lesions HEENT: Normocephalic, atraumatic. EOM intact CV: No pedal edema RESP: Respirations are unlabored, no audible wheezing GI: Abdomen non-distended MUSCULOSKELETAL: Bilateral upper and lower extremity strength is normal and symmetric. No atrophy or tone abnormalities are noted. Lumbar spine: Straight leg raising in the sitting position is negative for radicular pain. Tenderness pain to palpation over the lumbar spine and lumbar paraspinous muscles bilaterally. Positive for pain with facet loading and back extension/rotation. Normal range of motion without pain reproduction Buttocks: No pain to palpation over the PSIS, sacroiliac joint maneuvers are negative for pain. Extremities: Peripheral joint ROM is full and pain free without obvious instability or laxity in all four extremities. No edema or skin discolorations noted. Gait: Gait is normal NEUR: Bilateral lower extremity coordination and muscle stretch reflexes are physiologic and symmetric. Negative clonus bilaterally. No loss of sensation is noted. Assessment and Plan Plan: Assessment and plan= 1-lumbar spondylosis with lumbar facet arthropathy without myelopathy. Patient reports almost 100% pain relief from #1 and #2 diagnostic medial branch blocks. We will schedule patient to have diagnostic medial branch block lumbar area at L3, L4, L5 for facets L4 5 and L5-S1 Procedure risk and benefit of that to discuss with the patient she agreed with proceeding. We had a lengthy discussion regarding chronic opioid use, patient is amenable to weaning narcotics with Dr. Pena and patient will discuss this with them. Provided patient with exercise handout, focusing on low back and core strengthening exercises. Also advised her to resume yoga. Objective - Vital Signs Vital signs: Vital Signs Temp Pulse 77 05/05/19 14:56 Resp 16 05/05/19 14:56 BP 138/88 05/05/19 14:56 Pulse Ox 99 05/05/19 14:56 Intake & Output 05/04/19 05/05/19 05/05/19 18:59 06:59 18:59 Weight 74.389 kg PQRS Measure Charge Sheet PQRS Narrative: Smoking Status Never smoker Blood Pressure 138/88 Pain Intensity [Bilateral 6 Lower Back] Scale Used Numeric (1 - 10) Hx Alcohol Use (MH) No Home Medications: Ambulatory Orders Furosemide [Lasix] 20 mg PO DIRECTED PRN 12/24/16 Hydrocodone/Acetaminophen [[place] 5-325] 1 each PO DIRECTED 12/23/18 Controlled Substance Measures - Controlled Substance Measures Is patient prescribed a controlled substance at discharge?: No
== END ==
CPT/HCPCS: 99211

== ENCOUNTER 2019-08-05 06:23 | Day surgery (SDC) | payer OTHER ==
[2019-08-04 10:59] VITALS: BMI 25.7
[2019-08-05 06:59] VITALS: TEMP 97.6
[2019-08-05] MEDS ORDERED: LIDOCAINE 1% 20 ML VIAL (10MG/ML) FOR IV START INTRADERMA ONE (07:05)
--- NOTE | 2019-08-05 08:10 | P.PCN ---
Date of Procedure: 08/05/19 Procedure(s) Performed: PREOPERATIVE DIAGNOSIS: 1-Lumbar Spondylosis with Facet Arthropathy without myelopathy. 2- Lumber degenerative disc disease POSTOPERATIVE DIAGNOSIS: 1- Lumbar Spondylosis with Facet Arthropathy without myelopathy. 2- Lumber degenerative disc disease PROCEDURES : Right Radiofrequency thermocoagulation, L3, L4, and L5 medial branch, with fluoroscopic guidance (fluoroscopy images available in the radiology department). to denervate the facet joints at (L4- 5 and L5-S1 ) ANESTHESIA: Moderate sedation with intravenous versed 2 mg and fentaneyl 100 mcg, and local infiltration with Ropivacaine 0.5 % . EBL: Minimal PROCEDURE INDICATION: The patient with low back pain secondary to lumbar facet arthropathy who had more than 50% relief of her pain with previous diagnostic lumbar medial branch block with bupivacaine. PROCEDURE DESCRIPTION / TECHNIQUE: The patient was seen and identified in the preoperative area. Risks, benefits, complications, including but not limited to risk of infection ,bleeding , allergic reactions to the medications and no complete pain releife , and alternatives were discussed with the patient, the patient agreed to proceed with the procedure and signed the consent. IV was started. Vital signs remained stable throughout the procedure. Patient was taken to the OR and time out was completed. The patient was placed in the prone position on the procedure table. The lumber area was prepped and draped in the usual sterile fashion. . Vital signs were closely monitored during the procedure .IV sedation was used during the procedure to decrease patients anxiety. Using AP and then oblique fluoroscopy, the ``eye of the Shadi dog corresponding to the connection between the superior and transverse articular processes of right L3, L4, and L5 were identified, marked, and localized with 1% lidocaine. Subsequently, a 18 [id number] radiofrequency cannula with a 10- mm active tip was advanced guided by fluoroscopy to each of the``eyes of the Shadi dog at right L3, L4, and L5. Each site then underwent sensory testing at 50 Hz and 0 to 1 volt and motor testing at 2.5 Hz and 0 to 3 volt with local stimulation, but no radicular symptoms down the legs. Thereafter the right L3, L4, and L5 sites underwent radiofrequency thermocoagulation at 80 degrees celsius for 90 seconds after injecting 0.5 ml of PF Ropivacaine 1ml, then after the thermocoagulation done , 1 ml of the block solution containing Depo-Medrol 40 mg and 3 ml of Ropivacaine 0.5% was injected at the right L3 , L4 , and L5, levels after negative aspiration of CSF and blood and with no paresthesias. Cannulas were retracted while injecting lidocaine 1% until the needle is out. At the end of the procedure, the skin was cleansed and bandages were applied. COMPLICATIONS: No acute complications. DISPOSITION / PLANS: The patient was placed in a supine position and transferred to the recovery area in a stable condition for observation and was discharged from the recovery room after meeting discharge criteria. Home discharge instructions given to the patient by the staff. The patient was reexamined prior to discharge. The patient will schedule a follow up in the clinic in 2-4 weeks.
[2019-08-05] MEDS ORDERED: KETOROLAC 30 MG/ML 1 ML VIAL IVP STA (08:11)
[2019-08-05] MEDS ORDERED: IV FLUID CONTINUATION 700 ML IV ONE (08:26)
[2019-08-05 08:32] VITALS: RESP 18
--- NOTE | 2019-08-05 08:42 | FL ---
Fluoroscopy History: radio freq rt lumbar radio freq rt lumbar. Dr Fonseca. 8 sec fl time. 3 pics scanned
[2019-08-05 08:54] VITALS: BP 104/69; PULSE 60
== END 2019-08-05 08:54 | disposition home or self-care (01) ==
LOC: ORPAIN 06:23
PROVIDERS: ATTEND Specialist
DX: M47.816 Spondylosis without myelopathy or radiculopathy, lumbar region (principal); M51.36 Other intervertebral disc degeneration, lumbar region
CPT/HCPCS: 64635; 64636; J2250; J1030; J3010; J1885; 99152

== ENCOUNTER 2019-08-19 06:17 | Day surgery (SDC) | payer OTHER ==
[2019-08-19] MEDS ORDERED: LACTATED RINGERS 1,000 ML IV SCH (06:31)
[2019-08-19 06:39] VITALS: RESP 16; TEMP 97.6
[2019-08-19] MEDS ORDERED: LIDOCAINE 1% 20 ML VIAL (10MG/ML) FOR IV START INTRADERMA ONE (06:44)
[2019-08-19] MEDS ORDERED: IV FLUID CONTINUATION 700 ML IV ONE (07:36)
--- NOTE | 2019-08-19 07:39 | P.PCN ---
Date of Procedure: 08/19/19 Procedure(s) Performed: PREOPERATIVE DIAGNOSIS: Lumbar Spondylosis POSTOPERATIVE DIAGNOSIS: Same PROCEDURES: Radiofrequency ablation of the L3, L4, L5 medial branches with fluoroscopic guidance on the left side SURGEON: Sarai Flowers MD. ANESTHESIA: Lidocaine 1% 5 mL, Moderate sedation with intravenous Versed and fentanyl, sedation time 19 minutes EBL: Minimal Fluoroscopy was used for the procedure and images were saved in the radiology portion of the chart. PROCEDURE INDICATION: The patient with low back pain secondary to lumbar facet arthropathy who had more than 50% relief of pain with previous diagnostic lumbar medial branch block X2. PROCEDURE DESCRIPTION / TECHNIQUE: The patient was seen and identified in the preoperative area. Risks, benefits, complications, including but not limited to risk of infection ,bleeding , allergic reactions to the medications and incomplete pain relief , and alternatives were discussed with the patient, the patient agreed to proceed with the procedure and signed the consent. IV was started. The operative site was marked. Patient was taken to the OR and time out was completed. The patient was placed in the prone position on the procedure table. The lumbar area was prepped and draped in the usual sterile fashion. . Vital signs were closely monitored during the procedure .IV sedation was used during the procedure to decrease patient?s anxiety. Using AP and then oblique fluoroscopy, the "eye of the Shadi dog" corresponding to the connection between the superior and transverse articular processes of the L4 and L5 as well as the sacral ala were identified, marked, and localized with 1% lidocaine. Subsequently, an 18 guage 100 mm radiofrequency cannula with a 10-mm active tip was advanced guided by fluoroscopy to the identified target at each site. Needle positioning was confirmed on AP, oblique and lateral fluoroscopy. Motor testing at 2.5 Hz was done with paraspinal muscle stimulation only, and no radicular symptoms down the legs. Then 1 mL of 4% lidocaine was injected in each site. Radiofrequency thermocoagulation at 80 degrees celsius for 90 seconds was then performed. [place] were removed. Sterile dressings were applied. COMPLICATIONS: No acute complications. DISPOSITION / PLANS: The patient was placed in a supine position and transferred to the recovery area in a stable condition for observation and was discharged from the recovery room after meeting discharge criteria. Home discharge instructions given to the patient by the staff. The patient will follow up in clinic in 4 weeks.
[2019-08-19 08:01] VITALS: BP 98/67; PULSE 58
--- NOTE | 2019-08-19 08:22 | FL ---
EXAMINATION TYPE: FL guided pain mgmt statistic DATE OF EXAM: 08/19/2019 FLUOROSCOPY Fluoroscopy time of 13 seconds was used during left lumbar radial frequency ablation. 7 image/s docu ment/s the procedure.
== END 2019-08-19 08:06 | disposition home or self-care (01) ==
LOC: ORPAIN 06:17
PROVIDERS: ATTEND Anesthesiology
DX: M47.816 Spondylosis without myelopathy or radiculopathy, lumbar region (principal)
CPT/HCPCS: 64635; 64636; J2250; J3010; 99152

== ENCOUNTER → 2019-09-16 | Outpatient (CLI) | payer OTHER ==
--- NOTE | 2019-09-20 11:20 | P.PAINPG ---
Subjective Progress Note Date: 09/16/19 This is a follow-up visit for this 49 year old female with a chronic history of severe low back pain with radiation to the right posterior thigh, she was diagnosed with lumbar spondylosis without myelopathy, she has recently undergone lumbar radiofrequency ablation. she reports that the right lumbar radiofrequency ablation helped significantly, however the left lumbar radiofrequency ablation did not help as much. today, she complains of pain in the low back, radiating to left buttocks, left posterior thigh, not usually past her knee. she does have occasional numbness and tingling in the medial aspect of right lower extremity, and occasionally left lower extremity. in the past, she was primarily complaining of right-sided low back pain and has undergone lumbar epidural steroid injections and right-sided lumbar transforaminal steroid injections with good benefit. Review of systems is negative for chest pain, shortness of breath, new onset weakness, numbness/tingling, abdominal pain, malaise, fever, night sweats, chills, homicidal or suicidal ideation, or bowel incontinence. She does report chronic bladder stress incontinence. She currently works as a massage therapist. Objective - Exam Physical exam: Vitals: Reviewed in EMR GENERAL: Well appearing, in no acute distress PSYCH: Mood and affect is appropriate. Awake, alert, and oriented SKIN: Skin color, texture, turgor normal, no rashes or lesions HEENT: Normocephalic, atraumatic. EOM intact CV: No pedal edema RESP: Respirations are unlabored, no audible wheezing GI: Abdomen non-distended MUSCULOSKELETAL: Bilateral lower extremity strength is normal and symmetric. No atrophy or tone abnormalities are noted. Lumbar spine: Straight leg raising in the sitting position is positive on the left side for radicular pain. Tenderness pain to palpation over the lumbar spine and lumbar paraspinous muscles bilaterally, worse on the left. Positive for pain with facet loading and back extension/rotation. Normal range of motion without pain reproduction Buttocks: No pain to palpation over the PSIS, sacroiliac joint maneuvers are negative for pain. Extremities: Peripheral joint ROM is full and pain free without obvious instability or laxity in all four extremities. No edema or skin discolorations noted. Gait: Gait is normal NEUR: Bilateral lower extremity coordination and muscle stretch reflexes are physiologic and symmetric. Negative clonus bilaterally. No loss of sensation is noted. Imaging: MRI lumbar spine shows mild to moderate central canal stenosis and moderate to severe bilateral neuroforaminal stenosis at L4-5 Assessment and Plan Plan: Assessment and plan= 1-lumbar spondylosis with lumbar facet arthropathy without myelopathy, Lumbar radiculopathy, lumbar degenerative disc disease patient reports good benefit from right-sided lumbar radiofrequency ablation, however does not note significant benefit from left lumbar radiofrequency ablation. Of note, her pain seems more radicular in nature on the left side. We will schedule patient to have left-sided L4- 5 transforaminal epidural steroid injection Procedure risk and benefit of that to discuss with the patient she agreed with proceeding. prescription for physical therapy was given to focus on low back and core stretching and strengthening exercises. I advised her to discuss a prescription for gabapentin with her primary care physician. PQRS Measure Charge Sheet Measure #130: Documentation of Current Meds in Medical Chart: Patient's medications documented in chart Measure #226: Tobacco Use: Screen & Cessation Intervention: Pt not a tobacco user Measure #111: Pneumonia Vaccination: Pneumococcal vaccine NOT administered or previously given Measure #47: Advance Care Plan: Advance care planning discussed & documented, pt chose/unable to give Measure #412: Opioid Treatment Agreement: No documentation of signed opioid treatment agreement Measure #317: Preventitive Care & Scrn High Bld Press & F/U: Normal blood pressure, f/u not required Measure #128: Body Mass Index (BMI) Screening & Follow-up: BMI documented within normal parameters Measure #131: Pain Assessment & Follow-up: Pain positive & plan documented, Follow-up scheduled Measure #431: Unhealthy Alcohol Use Preventative Care & Scrn: Patient not identified as an unhealthy alcohol user PQRS Narrative: Smoking Status Never smoker Pain Intensity [Lower Back] 8 Scale Used Numeric (1 - 10) Hx Alcohol Use (MH) No Home Medications: Ambulatory Orders Furosemide [Lasix] 20 mg PO DIRECTED PRN 12/24/16 Hydrocodone/Acetaminophen [[place] 5-325] 1 each PO BID PRN 12/23/18 Controlled Substance Measures - Controlled Substance Measures Is patient prescribed a controlled substance at discharge?: No
== END | disposition home or self-care (01) ==
LOC: PNWHC3 13:07
PROVIDERS: ATTEND Anesthesiology
DX: M51.16 Intervertebral disc disorders with radiculopathy, lumbar region (principal); M47.26 Other spondylosis with radiculopathy, lumbar region; M46.96 Unspecified inflammatory spondylopathy, lumbar region; Z98.890 Other specified postprocedural states; Z79.891 Long term (current) use of opiate analgesic; Z79.899 Other long term (current) drug therapy
CPT/HCPCS: 99211

== ENCOUNTER → 2020-05-15 | Outpatient (CLI) | payer OTHER ==
--- NOTE | 2020-05-16 08:39 | MM ---
Reason for exam: screening (asymptomatic). Last mammogram was performed 2 years and 5 months ago. History: Patient is postmenopausal. Family history of breast cancer in aunt at age 50. Took hormonal contraceptives for 6 months. Physical Findings: A clinical breast exam by your physician is recommended on an annual basis and results should be correlated with mammographic findings. MG 3D Screening Mammo W/Cad Bilateral CC and MLO view(s) were taken. Prior study comparison: December 02, 2017, bilateral MG 3d screening mammo w/cad. October 04, 2016, bilateral MG 3d screening mammo w/cad. There are scattered fibroglandular densities. Finding #1: There is a 6 mm equal density (isodense) mass in the outer quadrant, posterior, central position of the left breast. Finding #2: There are typically benign calcifications in the right breast. ASSESSMENT: Incomplete: need additional imaging evaluation, BI-RAD 0 RECOMMENDATION: Special view mammogram of the left breast. If lesion persists on supplemental views, image directed ultrasound is recommended. [facility] will attempt to contact patient to return for supplemental views and ultrasound if indicated.
== END | disposition home or self-care (01) ==
LOC: RADMAMWWP 15:57
PROVIDERS: ATTEND Family Medicine
DX: Z12.31 Encounter for screening mammogram for malignant neoplasm of breast (principal); Z80.3 Family history of malignant neoplasm of breast
CPT/HCPCS: 77063; 77067

== ENCOUNTER → 2020-06-09 | Outpatient (CLI) | payer OTHER ==
--- NOTE | 2020-06-13 09:58 | MM ---
Reason for exam: additional evaluation requested from abnormal screening. Last mammogram was performed 1 month ago. History: Patient is postmenopausal. Family history of breast cancer in aunt at age 50. Took hormonal contraceptives for 6 months. Physical Findings: Nurse did not find any significant physical abnormalities on exam. MG 3D Work Up W/Cad LT CC and MLO view(s) were taken of the left breast. Prior study comparison: May 15, 2020, bilateral MG 3d screening mammo w/cad. December 02, 2017, bilateral MG 3d screening mammo w/cad. There are scattered fibroglandular densities. There is no discrete abnormality. These results were verbally communicated with the patient and result sheet given to the patient on 06/09/20. ASSESSMENT: Negative, BI-RAD 1 RECOMMENDATION: Return to routine screening mammogram schedule for both breasts.
== END | disposition home or self-care (01) ==
LOC: RADMAMWWP 13:51
PROVIDERS: ATTEND Family Medicine
DX: R92.8 Other abnormal and inconclusive findings on diagnostic imaging of breast (principal)
CPT/HCPCS: 77065; G0279; 77061

== ENCOUNTER 2020-06-23 23:26 | Emergency (ER) | payer OTHER ==
[2020-06-23 23:33] VITALS: BP 134/85; PULSE 84; RESP 18; TEMP 97.7
--- NOTE | 2020-06-24 00:31 | XR ---
EXAMINATION TYPE: XR knee 4V RT DATE OF EXAM: 06/24/2020 COMPARISON: NONE HISTORY: Pain TECHNIQUE: 4 views FINDINGS: I see no fracture nor dislocation. Joint spaces are normal. IMPRESSION: Negative right knee exam.
--- NOTE | 2020-06-24 00:33 | ED ---
General Adult HPI - General Chief complaint: Extremity Problem,Nontraumatic Stated complaint: RT knee pain Time Seen by Provider: 06/23/20 23:46 Source: patient, RN notes reviewed, old records reviewed Mode of arrival: wheelchair - History of Present Illness Initial comments: 49-year-old male patient with the chief complaint of right anterior knee pain. Patient reports that she's had some mild anterior knee pain for the last 2 weeks. Patient reports that today when she went to go stand up she felt a pop in her right knee not having some lateral pain. Patient reports having panic range of motion difficulty ambulating. Denies falling to the ground. Denies any other acute complaints. Systemic: Pt denies fatigue, fever/chills, rash. Pt denies weakness, night sweats, weight loss. Neuro: Pt denies headache, visual disturbances, syncope or pre-syncope. HEENT: Pt denies ocular discharge or irritation, otalgia, rhinorrhea, pharyngitis or notable lymphadenopathy. Cardiopulmonary: Pt denies chest pain, SOB, heart palpitations, dyspnea on exertion. Abdominal/GI: Pt denies abdominal pain, n/v/d. : Pt denies dysuria, burning w/ urination, frequency/urgency. Denies new onset urinary or bowel incontinence. MSK: Pt denies loss of strength or function in extremities. Neuro: Pt denies new onset weakness, paresthesias. - Related Data Home Medications Medication Instructions Recorded Confirmed Furosemide [Lasix] 20 mg PO DIRECTED PRN 12/24/16 09/16/19 Hydrocodone/Acetaminophen [[place] 1 each PO BID PRN 12/23/18 09/16/19 5-325] Allergies Allergy/AdvReac Type Severity Reaction Status Date / Time No Known Allergies Allergy Verified 06/23/20 23:33 Review of Systems ROS Statement: Those systems with pertinent positive or pertinent negative responses have been documented in the HPI. ROS Other: All systems not noted in ROS Statement are negative. Past Medical History Past Medical History: No Reported History Additional Past Medical History / Comment(s): BACK PAIN History of Any Multi-Drug Resistant Organisms: None Reported Past Surgical History: Cholecystectomy, Hysterectomy Additional Past Surgical History / Comment(s): PARTIAL HYSTERECTOMY, pain procedures Past Anesthesia/Blood Transfusion Reactions: No Reported Reaction Past Psychological History: No Psychological Hx Reported Smoking Status: Never smoker Past Alcohol Use History: Occasional Past Drug Use History: None Reported - Past Family History Mother Family Medical History: No Reported History General Exam - General Exam Comments Initial Comments: Constitutional: NAD, AOX3, Pt has pleasant affect. HEENT: NC/AT, trachea midline, neck supple, no lymphadenopathy. External ears appear normal, without discharge. Mucous membranes moist. Eyes PERRLA, EOM intact. There is no scleral icterus. No pallor noted. Cardiopulmonary: RRR, no murmurs, rubs or gallops, no JVD noted. Lungs CTAB in anterior and posterior cross. No peripheral edema. Abdominal exam: Abdomen soft and non-distended. Neuro: CN II-XII grossly intact. No nuchal rigidity. No raccon eyes, no darden sign, no hemotympanum. No cervical spinal tenderness. MSK: Right anterior knee, lateral anterior knee mildly tender to palpation. Mild amount of swelling is noted. No skin changes. No posterior calf tenderness bilaterally, homans sign negative bilaterally. Posterior tibialis and radial pulse +2 bilaterally. Sensation intact in upper and lower extremities. Course Vital Signs 06/23/20 23:31 Temperature 97.7 F Pulse Rate 84 Respiratory 18 Rate Blood Pressure 134/85 O2 Sat by Pulse 98 Oximetry Medical Decision Making - Medical Decision Making 49-year-old female patient with a chief complaint of right knee pain. Patient was seated in a car and stood up and then felt a pop. Patient having some pain and difficulty bearing weight. Plain film negative. Patient placed in knee immobilizer will discharge the patient orthopedic follow-up and return precautions. Case discussed with Dr. Alexander. Disposition Clinical Impression: Knee sprain Disposition: HOME SELF-CARE Condition: Stable Instructions (If sedation given, give patient instructions): Knee Sprain (ED) Additional Instructions: Continue to wear knee immobilizer. Do not bear weight on lower extremity. Use crutches. Follow-up with orthopedic consult tomorrow. Return to ER if any w orsening symptoms. Is patient prescribed a controlled substance at d/c from ED?: No Referrals: Abdiel Irvin DO [Primary Care Provider] - 1-2 days Cruz Alejandre DO [Doctor of Osteopathic Medicine] - 1-2 days
[2020-06-24] MEDS ORDERED: IBUPROFEN 600 MG STARTER PACK 4 TAB BTL PO STA (00:52)
== END 2020-06-24 01:05 | disposition home or self-care (01) ==
LOC: EC 23:26
DX: S83.91XA Sprain of unspecified site of right knee, initial encounter (principal); M54.9 Dorsalgia, unspecified; X50.1XXA Overexertion from prolonged static or awkward postures, initial encounter
CPT/HCPCS: 73564; 99284; L1830

== ENCOUNTER 2021-08-28 11:01 | Day surgery (SDC) | payer OTHER ==
[2021-08-23 15:18] VITALS: BMI 27.3
[~2021-08-28 11:01] MED LIST changes: +LIDOCAINE 1% (10MG/ML) FOR IV START INTRADERMA PRN
[2021-08-28 11:25] VITALS: RESP 16; TEMP 98.3
[2021-08-28] MEDS ORDERED: LIDOCAINE 1% INJ 10MG/ML (20 ML MDV) ONE (12:01)
[2021-08-28] MEDS ORDERED: PROPOFOL 10 MG/ML 20 ML VIAL IV ONE (12:01)
--- NOTE | 2021-08-28 12:04 | P.GSHP ---
History of Present Illness H&P Date: 08/28/21 Chief Complaint: Colon cancer screening Patient here today for colonoscopy. She has not had 1 previously. No new bowel complaints. She does have a history of chronic constipation. No rectal bleeding or melena. No family history of colon cancer. Past Medical History Past Medical History: No Reported History Additional Past Medical History / Comment(s): chronic low back pain, compression of L4L5, occ edema rt ankle/foot( hx fx) History of Any Multi-Drug Resistant Organisms: None Reported Past Surgical History: Cholecystectomy, Hysterectomy Additional Past Surgical History / Comment(s): . Past Anesthesia/Blood Transfusion Reactions: No Reported Reaction Smoking Status: Never smoker - Past Family History Mother Family Medical History: No Reported History Medications and Allergies Home Medications Medication Instructions Recorded Confirmed Type Furosemide [Lasix] 20 mg PO DIRECTED PRN 12/24/16 08/28/21 History Hydrocodone/Acetaminophen [[place] 1 each PO BID PRN 12/23/18 08/28/21 History 5-325] Allergies Allergy/AdvReac Type Severity Reaction Status Date / Time No Known Allergies Allergy Verified 08/23/21 15:12 Surgical - Exam Vital Signs Temp Pulse Resp BP Pulse Ox 98.3 F 101 H 16 131/87 99 08/28/21 11:23 08/28/21 11:23 08/28/21 11:23 08/28/21 11:23 08/28/21 11:23 Physical exam: General: Well-developed, well-nourished HEENT: Normocephalic, sclerae nonicteric Abdomen: Nontender, nondistended Extremities: No edema Neuro: Alert and oriented Assessment and Plan (1) Colon cancer screening Narrative/Plan: Will proceed with colonoscopy at this time Current Visit: Yes Status: Acute Code(s): Z12.11 - ENCOUNTER FOR SCREENING FOR MALIGNANT NEOPLASM OF COLON SNOMED Code(s): 201946785
--- NOTE | 2021-08-28 12:22 | P.PCN ---
Date of Procedure: 08/28/21 Procedure(s) Performed: PREOPERATIVE DIAGNOSIS: Colon cancer screening POSTOPERATIVE DIAGNOSIS: Normal exam PROCEDURE: Colonoscopy ANESTHESIA: MAC SURGEON: Steven Ryan M.D. SPECIMENS: None ENDOSCOPIC PROCEDURE: The patient was placed on the endoscopy table in the left decubitus position. The Olympus colonoscope was inserted into the anus and passed under direct visualization to the base of the cecum. The appendiceal orifice was visualized. From that point the scope was slowly withdrawn inspecti ng all surfaces carefully. There were no neoplastic inflammatory or polypoid lesions throughout the cecum, ascending, transverse, descending, sigmoid and rectum. There was no visible diverticulosis noted. Patient did have fairly significant tortuosity throughout the left colon. Digital rectal examination was normal. The patient was taken to the recovery room in stable condition per anesthesia guidelines. RECOMMENDATIONS: resume diet. Follow colonoscopy 10 years.
[2021-08-28 12:43] VITALS: BP 125/82; PULSE 90
== END 2021-08-28 12:56 | disposition home or self-care (01) ==
LOC: ORWHC2ENDO 11:01
PROVIDERS: ATTEND Surgery
DX: Z12.11 Encounter for screening for malignant neoplasm of colon (principal); K59.09 Other constipation; M19.90 Unspecified osteoarthritis, unspecified site; G89.29 Other chronic pain; M54.50 Low back pain, unspecified; R60.9 Edema, unspecified; Z90.49 Acquired absence of other specified parts of digestive tract; Z90.710 Acquired absence of both cervix and uterus
CPT/HCPCS: J2001; J2704; G0121

== ENCOUNTER → 2021-09-20 | Outpatient (CLI) | payer OTHER ==
--- NOTE | 2021-09-20 17:38 | ECHOF ---
Referral Reason:I51.4 Background MEASUREMENTS -------- HEIGHT: 172.7 cm WEIGHT: 79.4 kg BP: 119/60 RVIDd: 3.2 cm (< 3.3) IVSd: 1.3 cm (0.6 - 1.1) LVIDd: 3.9 cm (3.9 - 5.3) LVPWd: 1.2 cm (0.6 - 1.1) IVSs: 1.5 cm LVIDs: 2.4 cm LVPWs: 1.5 cm LA Diam: 3.2 cm (2.7 - 3.8) LAESV Index (A-L): 23.24 ml/m Ao Diam: 2.8 cm (2.0 - 3.7) AV Cusp: 2.2 cm (1.5 - 2.6) MV EXCURSION: 17.614 mm (> 18.000) MV EF SLOPE: 98 mm/s (70 - 150) EPSS: 0.6 cm MV E Michael: 0.80 m/s MV DecT: 193 ms MV A Michael: 0.65 m/s MV E/A Ratio: 1.23 RAP: 5.00 mmHg RVSP: 31.76 mmHg FINDINGS -------- Sinus rhythm. This was a technically good study. The left ventricular size is normal. There is mild concentric left ventricular hypertrophy. Overa ll left ventricular systolic function is normal with, an EF between 60 - 65 %. The right ventricle is normal in size. Normal LA size by volume 22+/-6 ml/m2. The right atrium is normal in size. Interatrial and interventricular septum intact. The aortic valve is trileaflet, and appears structurally normal. No aortic stenosis or regurgitation. There is trace mitral regurgitation. Mild tricuspid regurgitation present. Right ventricular systolic pressure is normal at < 35 mmHg. The pulmonic valve is normal. The aortic root size is normal. Normal inferior vena cava with normal inspiratory collapse consistent with estimated right atrial pre ssure of 5 mmHg. There is no pericardial effusion. CONCLUSIONS -------- 1. The left ventricular size is normal. 2. There is mild concentric left ventricular hypertrophy. 3. Overall left ventricular systolic function is normal with, an EF between 60 - 65 %. 4. The aortic valve is trileaflet, and appears structurally normal. No aortic stenosis or regurgitati on. 5. There is trace mitral regurgitation. 6. Mild tricuspid regurgitation present. 7. There is no pericardial effusion. ADVICE CLERK: Chloe Nava RDCS
== END | disposition home or self-care (01) ==
LOC: RADECHMAIN 14:54
PROVIDERS: ATTEND Family Medicine
DX: I51.7 Cardiomegaly (principal); I51.4 Myocarditis, unspecified; I34.0 Nonrheumatic mitral (valve) insufficiency
CPT/HCPCS: 93306

== ENCOUNTER → 2021-09-26 | Outpatient (CLI) | payer OTHER ==
--- NOTE | 2021-09-26 19:59 | BD ---
EXAMINATION TYPE: Axial Bone Density DATE OF EXAM: 09/26/2021 COMPARISON: NONE CLINICAL HISTORY: Postmenopausal screening Height: 68 Weight: 181.2 FRAX RISK QUESTIONS: Alcohol (3 or more units per day): NO Family History (Parent hip fracture): no Glucocorticoids (More than 3mos): no (Ex: prednisone, prednisolone, methylprednisolone, dexamethasone, and hydrocortisone). History of Fracture in Adulthood: yes Secondary Osteoporosis: 1. Type 1 Diabetes: no 2. Hyperthyroidism: no 3. Menopause before 45: yes 4. Malnutrition: no 5. Chronic liver disease: no Rheumatoid Arthritis: no Current Tobacco Use: no RISK FACTORS HISTORY OF: History of Wrist Fracture: left When: 8 years ago Surgery to Spine/Hip(right/left)/Wrist (right/left): no Family History of Osteoporosis: yes Active: yes Diet low in dairy products/other sources of calcium: yes Postmenopausal woman: yes Lost more than 2 inches in height since high school: no MEDICATIONS: water pill, potassium Additional History: EXAM MEASUREMENTS: Bone mineral densitometry was performed using the [employer] System. Bone mineral density as measured about the Lumbar spine is: ----- L1-L4(G/cm2): 1.052 T Score Values are as follows: ----- L2: -1.9 ----- L3: -1.0 ----- L4: -0.6 ----- L1-L4: -1.1 Bone mineral density : baseline Bone mineral density about the R hip (g/cm2): 0.913 Bone mineral density about the L hip (g/cm2): 0.866 T Score values are as follows: -----R Neck: -0.9 -----L Neck: -1.2 -----R Total: -1.1 -----L Total: -1.1 Bone mineral density : baseline IMPRESSION: Osteopenia (T Score between -2.5 and -1). There is slightly increased risk of fracture and the patient may be considered for treatment. Re-Screen 2-5 years. NOTE: T-SCORE=SD OF THE YOUNG ADULT MEAN.
--- NOTE | 2021-10-01 13:35 | MM ---
Reason for exam: screening (asymptomatic). Last mammogram was performed 1 year and 4 months ago. History: Patient is postmenopausal. Family history of breast cancer in aunt at age 50. Took hormonal contraceptives for 6 months. Physical Findings: A clinical breast exam by your physician is recommended on an annual basis and results should be correlated with mammographic findings. MG 3D Screening Mammo W/Cad Bilateral CC and MLO view(s) were taken. Prior study comparison: June 09, 2020, left breast MG 3d work up w/cad LT. May 15, 2020, bilateral MG 3d screening mammo w/cad. There are scattered fibroglandular densities. No significant changes when compared with prior studies. ASSESSMENT: Benign, BI-RAD 2 RECOMMENDATION: Routine screening mammogram of both breasts in 1 year.
== END | disposition home or self-care (01) ==
LOC: RADMAMWWP 08:28
PROVIDERS: ATTEND Family Medicine
DX: Z12.31 Encounter for screening mammogram for malignant neoplasm of breast (principal)
CPT/HCPCS: 77063; 77067; 77080

== ENCOUNTER → 2022-10-24 | Outpatient (CLI) | payer OTHER ==
--- NOTE | 2022-10-25 08:56 | MM ---
Reason for Exam: Screening (asymptomatic). Last mammogram was performed 1 year(s) and 1 month(s) ago. Patient History: Menarche at age 9. First Full-Term at age 20. Hysterectomy at age 39. Postmenopausal. Hormonal Contraceptives for 6 months. Maternal aunt had breast cancer, age 50. Risk Values: Belinda 5 year model risk: 1.1%. NCI Lifetime model risk: 8.4%. Prior Study Comparison: 05/15/2020 Bilateral Screening Mammogram, [facility]. 06/09/2020 Left Diagnostic Mammogram, [facility]. 09/26/2021 Bilateral Screening Mammogram, [facility]. Tissue Density: There are scattered fibroglandular densities. Findings: Analyzed By CAD. There is no suspicious group of microcalcifications or new suspicious mass in either breast. Overall Assessment: Negative, BI-RAD 1 Management: Screening Mammogram of both breasts in 1 year. A clinical breast exam by your physician is recommended on an annual basis and results should be correlated with mammographic findings. Electronically signed and approved by: Steven Thompson D.O.
== END | disposition home or self-care (01) ==
LOC: RADMAMWWP 09:18
PROVIDERS: ATTEND Family Medicine
DX: Z12.31 Encounter for screening mammogram for malignant neoplasm of breast (principal); Z80.3 Family history of malignant neoplasm of breast; Z78.0 Asymptomatic menopausal state
CPT/HCPCS: 77063; 77067

== ENCOUNTER → 2023-05-06 | Outpatient (CLI) | payer OTHER ==
[2023-05-06 14:40] VITALS: BP 130/82; PULSE 66; RESP 16; TEMP 97.7
--- NOTE | 2023-05-06 15:38 | P.HPOB ---
History of Present Illness H&P Date: 05/06/23 Chief Complaint: The patient is here for her routine gynecologic exam. This is a 52-year-old with an LMP of 2009. The patient is here to establish with this office. It has been nearly 1 year since her last pelvic exam. She is status post vaginal hysterectomy for uterine fibroids. She states she has been experiencing some hot flashes and sweats during the past 6 months. Generally, they have been tolerable and about 2-3 times per week. Review of Systems She is gained about 30 pounds over the past 2 years. This was after losing significant amount of weight in the past with regular exercise. She believes her low back problems has limited her exercise and probably has contributed to her weight gain. She denies respiratory or cardiac problems. GI: Occasional constipation. Past Medical History Past Medical History: Cancer Additional Past Medical History / Comment(s): Chronic low back pain. 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 Osteopenia. PAST QUALITY CONTROLLER HISTORY: She has no history of STDs. 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 History of Any Multi-Drug Resistant Organisms: None Reported Past Surgical History: Cholecystectomy, Hysterectomy, Tonsillectomy Additional Past Surgical History / Comment(s): Vaginal hysterectomy 2009, pain procedures. Facial skin cancer removed 2021. Multiple D&Cs. Colonoscopy 2021(next after 10yr). Past Anesthesia/Blood Transfusion Reactions: No Reported Reaction Past Psychological History: No Psychological Hx Reported (She denies current depression.) Smoking Status: Never smoker Past Alcohol Use History: Occasional (4-6 per month.) Past Drug Use History: None Reported Additional Drug Use History / Comment(s): She has infrequently used edible marijuana products to help her sleep. Additional History: She is and has been engaged to someone she has been with since 2020. She plans to in May 2024. She works as a massage the rapist. - Past Family History Mother Family Medical History: No Reported History, Diabetes Mellitus, Hypertension Additional Family Medical History / Comment(s): Maternal aunt had breast cancer. Father Family Medical History: Diabetes Mellitus, Hypertension Medications and Allergies Home Medications Medication Instructions Recorded Confirmed Type Furosemide [Lasix] 20 mg PO DIRECTED PRN 12/24/16 05/06/23 History Hydrocodone/Acetaminophen [[place] 1 each PO BID PRN 12/23/18 05/06/23 History 5-325] Allergies Allergy/AdvReac Type Severity Reaction Status Date / Time No Known Allergies Allergy Verified 05/06/23 14:26 Exam Vital Signs Temp Pulse Resp BP Pulse Ox 05/06/23 14:34 97.7 F 66 16 130/82 98 Intake and Output 05/06/23 05/06/23 05/06/23 06:59 14:59 22:59 Other: Weight 85.729 kg Height 5 feet 8 inches, weight 189 pounds, BMI 28.7. This is a well-developed well-nourished white female who is alert and oriented times 3 in no acute distress. HEENT: Within normal limits. NECK: Supple without mass or thyromegaly. CHEST AND LUNGS: Clear to auscultation. HEART: Regular rate and rhythm. BREASTS: Are without mass or discharge. AXILLARY EXAM: Negative for adenopathy. BACK: Negative for CVA tenderness. ABDOMEN: Soft, nontender, without palpable masses. PELVIC EXAM: External genitalia appears normal with minimal atrophy. Vagina appears normal minimal atrophy. There is no evidence of prolapse. Bimanual examination is negative for mass or tenderness. RECTAL EXAM: Rectovaginal exam is negative for rectal mass or tenderness. A small 2 cm masses noted with rectovaginal exam and seems to be outside of the rectum and anterior to the rectum in the area of the vaginal apex. This is nontender. EXTREMITIES: Nontender. IMPRESSION: 1. 52-year-old perimenopausal female status post vaginal hysterectomy for benign reasons, with small pelvic mass noted on rectovaginal exam. Differential diagnosis will include colonic stool, palpable ovary, or other adnexal mass. 2. History of osteopenia PLAN: 1. Pap smears have been discontinued. 2. Self breast awareness was discussed with the patient. We have also discussed symptoms associated with inflammatory breast cancer. 3. Screening mammogram was done on 10/24/2022 and was benign. Repeat this after one year 4. Pelvic ultrasound was recommended to further evaluate the pelvic mass noted on rectovaginal exam. The order slip was given to the patient for this. 5. Osteoporosis prevention was discussed. I have stressed the importance of adequate calcium, vitamin D and regular exercise. Recommended amounts of calcium and vitamin D were also discussed. We will plan on repeating the bone density test in approximately 2-3 years. 6. She was advised to return in one year for her annual well woman exam and as needed.
== END ==
LOC: WWCWWP 14:18
PROVIDERS: ATTEND Obstetrics & Gynecology
DX: Z01.419 Encounter for gynecological examination (general) (routine) without abnormal findings (principal); M85.80 Other specified disorders of bone density and structure, unspecified site; Z86.018 Personal history of other benign neoplasm; Z78.0 Asymptomatic menopausal state; Z98.890 Other specified postprocedural states; Z80.3 Family history of malignant neoplasm of breast

== ENCOUNTER → 2023-05-07 | Outpatient (CLI) | payer OTHER ==
--- NOTE | 2023-05-07 15:18 | US ---
EXAMINATION TYPE: US transvaginal DATE OF EXAM: 05/07/2023 COMPARISON: US 09/07/2016 CLINICAL INDICATION: Female, 52 years old with history of R19.09 OTHER INTRA-ABDOMINAL AND PELVIC SWE LLING, MASS AN; Pt states vaginal mass on dr's examination/ partial hysterectomy 13 yrs ago TECHNIQUE: Transvaginal (TV). Transvaginal sonographic images of the pelvis were acquired. Date of LMP: 13 yrs ago 1. Uterus: Surgically absent 2. Endometrium: Surgically absent 3. Right Ovary: Obscured by overlying bowel gas 4. Left Ovary: Obscured by overlying bowel gas 5. Bilateral Adnexa: wnl 6. Posterior cul-de-sac: wnl Uterus and endometrium is surgically absent. There is a ovoid homogeneous hypoechoic lesion at the va ginal cuff measuring 1.2 x 0.8 x 1.3 cm. No internal color flow identified. Questionable posterior ac oustic enhancement. Both ovaries are obscured by overlying bowel gas. IMPRESSION: 1. Indeterminate vaginal cuff mass measuring up to 1.3 cm. Direct visualization is recommended. 2. Post-surgical changes from partial hysterectomy. 3. Nonvisualization of both ovaries due to overlying bowel gas.
== END | disposition home or self-care (01) ==
LOC: RADUSWWP 14:20
PROVIDERS: ATTEND Obstetrics & Gynecology
DX: N89.8 Other specified noninflammatory disorders of vagina (principal); R19.09 Other intra-abdominal and pelvic swelling, mass and lump; Z90.711 Acquired absence of uterus with remaining cervical stump
CPT/HCPCS: 76830

== ENCOUNTER → 2023-05-26 | Outpatient (CLI) | payer OTHER ==
--- NOTE | 2023-05-27 10:24 | MR ---
EXAMINATION TYPE: MR pelvis wo/w con DATE OF EXAM: 05/26/2023 COMPARISON: Ultrasound 05/07/2023 CLINICAL INDICATION:Female, 52 years old with history of R19.09 PELVIC MASS; Mass at vaginal cuff, hi story of hysterectomy TECHNIQUE: Triplane multisequence imaging was performed of the pelvis. IV Contrast: 8.5 cc Gadavist FINDINGS: Reproductive: Vagina: There is a 11 x 9 x 9 mm lesion in the posterior vagina wall near midline which demonstrates postcontrast enhancement which is rather homogenous. This appears to be confined to the vaginal wall. No evidence for extension outside the wall. Uterus: Uterus is surgically absent. Ovaries: follicular changes of the right ovary. Right ovary measures 2.1 x 1.7 x 2.5 cm. Left ovary m easures 2.2 x 1.2 x 2.4 cm. Bladder: Unremarkable. Bowel: Unremarkable as visualized. Peritoneum: No free fluid. Lymph nodes: No evidence of adenopathy. Vasculature: Unremarkable. Musculoskeletal: Bone marrow signal is within normal signal intensity. Abdominal wall/soft tissues: Unremarkable. IMPRESSION: Posterior vaginal wall 11 mm enhancing solid lesion. Correlate with direct visualization and tissue s ampling to rule out vaginal carcinoma. No abnormal lymphadenopathy. No evidence for extension outside the vagina wall.
== END | disposition home or self-care (01) ==
LOC: RADMRIMAIN 17:28
PROVIDERS: ATTEND Obstetrics & Gynecology
DX: D49.59 Neoplasm of unspecified behavior of other genitourinary organ (principal); N89.8 Other specified noninflammatory disorders of vagina; R19.09 Other intra-abdominal and pelvic swelling, mass and lump; Z90.710 Acquired absence of both cervix and uterus
CPT/HCPCS: 72197; A9585

== ENCOUNTER → 2023-11-28 | Outpatient (CLI) | payer OTHER ==
--- NOTE | 2023-12-02 19:59 | MM ---
Reason for Exam: Screening (asymptomatic). Last mammogram was performed 1 year(s) and 1 month(s) ago. Patient History: Menarche at age 9. First Full-Term at age 20. Hysterectomy at age 39. Postmenopausal. Hormonal Contraceptives for 6 months. Maternal aunt had breast cancer, age 50. Risk Values: Belinda 5 year model risk: 1.1%. NCI Lifetime model risk: 8.2%. Prior Study Comparison: 06/09/2020 Left Diagnostic Mammogram, [facility]. 09/26/2021 Bilateral Screening Mammogram, [facility]. 10/24/2022 Bilateral MG 3D screening mammo w/cad, [facility]. Tissue Density: There are scattered fibroglandular densities. Findings: Analyzed By CAD. There is no suspicious group of microcalcifications or new suspicious mass in either breast. Overall Assessment: Negative, BI-RAD 1 Management: Screening Mammogram of both breasts in 1 year. . Patient should continue monthly self-breast exams. A clinical breast exam by your physician is recommended on an annual basis. This exam should not preclude additional follow-up of suspicious palpable abnormalities. Note on Belinda scores and lifetime risk: 1. A Belinda score greater than 3% is considered moderate risk. If this is the case, consider specialist referral to assess eligibility for a risk reducing agent. 2. If overall lifetime risk for the development of breast cancer is 20% or higher, the patient may qualify for future screening with alternating mammogram and breast MRI. Electronically signed and approved by: Pipe Catalan M.D. Radiologist
== END | disposition home or self-care (01) ==
LOC: RADMAMWWP 09:32
PROVIDERS: ATTEND Family Medicine
DX: Z12.31 Encounter for screening mammogram for malignant neoplasm of breast (principal); Z80.3 Family history of malignant neoplasm of breast; Z78.0 Asymptomatic menopausal state
CPT/HCPCS: 77063; 77067

== ENCOUNTER → 2024-12-24 | Outpatient (CLI) | payer BC ==
--- NOTE | 2024-12-24 10:22 | MM ---
Reason for Exam: Screening (asymptomatic). Last mammogram was performed 1 year(s) and 1 month(s) ago. Patient History: Menarche at age 9. First Full-Term at age 20. Hysterectomy at age 39. Postmenopausal. Hormonal Contraceptives for 6 months. Maternal aunt had breast cancer, age 50. Risk Values: Belinda 5 year model risk: 1.2%. NCI Lifetime model risk: 8.1%. Prior Study Comparison: 09/26/2021 Bilateral Screening Mammogram, [facility]. 10/24/2022 Bilateral MG 3D screening mammo w/cad, [facility]. 11/28/2023 Bilateral MG 3D screening mammo w/cad, [facility]. Tissue Density: There are scattered areas of fibroglandular density. Findings: Analyzed By CAD. Benign appearing bilateral lymph nodes are redemonstrated. Benign-appearing right posterior vascular calcification is again seen. There is no suspicious new group of microcalcifications or new suspicious mass in either breast. Overall Assessment: Negative, BI-RAD 1 Management: Screening Mammogram of both breasts in 1 year. . Patient should continue monthly self-breast exams. A clinical breast exam by your physician is recommended on an annual basis. This exam should not preclude additional follow-up of suspicious palpable abnormalities. Note on Belinda scores and lifetime risk: 1. A Belinda score greater than 3% is considered moderate risk. If this is the case, consider specialist referral to assess eligibility for a risk reducing agent. 2. If overall lifetime risk for the development of breast cancer is 20% or higher, the patient may qualify for future screening with alternating mammogram and breast MRI. [facility], , 12/24/2024 10:19 AM. Electronically signed and approved by: Sam Mcneil M.D.
== END | disposition home or self-care (01) ==
LOC: RADMAMWWP 08:28
PROVIDERS: ATTEND Family Medicine
DX: R92.323 Mammographic fibroglandular density, bilateral breasts (principal); Z12.31 Encounter for screening mammogram for malignant neoplasm of breast; Z78.0 Asymptomatic menopausal state; Z92.0 Personal history of contraception; Z80.3 Family history of malignant neoplasm of breast
CPT/HCPCS: 77063; 77067